=== PATIENT | male | born 1970 | race Caucasian/White ===

== ENCOUNTER 2018-07-16 17:50 | Observation (INO) | payer SELFPAY ==
[2018-07-16] MEDS ORDERED: ASPIRIN 81 MG TABLET, CHEWABLE PO ONE (18:57)
--- NOTE | 2018-07-16 18:58 | ER Document Report ---
ED Medical Screen (RME) - General Chief Complaint: Chest Pain Stated Complaint: CHEST PAIN Time Seen by Provider: 07/16/18 18:56 Mode of Arrival: Ambulatory Information source: Patient, [facility] Records Notes: 48-year-old male with hypertension, obstructive sleep apnea presents with complaint of left-sided chest pain that started 2 hours prior to arrival while watching TV. Patient describes the pain as stabbing, intermittent and associated with nausea and diaphoresis. Patient denies prior similar symptoms. I have greeted and performed a rapid initial assessment of this patient. A comprehensive ED assessment and evaluation of the patient, analysis of test results and completion of medical decision making process we will be contacted by additional ED providers. PHYSICAL EXAMINATION: Vital signs reviewed GENERAL: Well-appearing, well-nourished and in no acute distress. LUNGS: No respiratory distress Musculoskeletal: Normal range of motion NEUROLOGICAL: Normal speech, normal gait. PSYCH: Normal mood, normal affect. SKIN: Warm, Dry, normal turgor, no rashes or lesions noted. TRAVEL OUTSIDE OF THE [place] IN LAST 30 DAYS: No - HPI Onset: Just prior to arrival Onset/Duration: Sudden, Intermittent, Persistent Quality of pain: Stabbing Associated Symptoms: Nausea, Sweating Exacerbated by: Denies Relieved by: Denies Similar symptoms previously: No Recently seen / treated by doctor: No - Related Data Smoking: Cigarettes Frequency of alcohol use: Occasional Drug Abuse: None Allergies/Adverse Reactions: YVONNE Inhibitors Allergy (Verified 07/16/18 17:53) Penicillins Allergy (Verified 07/16/18 17:53) Past Medical History - Social History Chew tobacco use (# tins/day): No Frequency of alcohol use: Social Drug Abuse: None - Past Medical History Cardiac Medical History: Reports: Hx Hypertension Renal/ Medical History: Denies: Hx Peritoneal Dialysis Psychiatric Medical History: Reports: Hx Depression - anxiety Past Surgical History: Reports: Hx Abdominal Surgery, Hx Tonsillectomy Physical Exam - Vital signs Vitals: Temp Pulse Resp BP Pulse Ox 98.1 F 82 16 160/99 H 98 07/16/18 18:21 07/16/18 18:21 07/16/18 18:21 07/16/18 18:21 07/16/18 18:21 Course - Vital Signs Vital signs: Temp Pulse Resp BP Pulse Ox 98.1 F 82 16 160/99 H 98 07/16/18 18:21 07/16/18 18:21 07/16/18 18:21 07/16/18 18:21 07/16/18 18:21
[2018-07-16 19:34] LABS: ABSOLUTE BASOPHILS # (AUTO) 0.1 10^3/uL (0.0-0.2); ABSOLUTE LYMPHOCYTES (AUTO) 1.2 10^3/uL (0.5-4.7); ABSOLUTE MONOCYTES (AUTO) 0.5 10^3/uL (0.1-1.4); ABSOLUTE NEUT (AUTO) 4.7 10^3/uL (1.7-8.2); BASOPHILS % (AUTO) 0.9 % (0-2); EOSINOPHILS % (AUTO) 0.3 % (0-6); HEMATOCRIT 48.8 % (37.9-51.0); HEMOGLOBIN 16.9 g/dL (13.5-17.0); LYMPHOCYTES % (AUTO) 17.9 % (13-45); MEAN CORPUSCULAR HGB CONC 34.7 g/dL (32.0-36.0); MEAN CORPUSCULAR VOLUME 92 fl (80-97); MONOCYTES % (AUTO) 8.4 % (3-13); PLATELET COUNT 259 10^3/uL (150-450); RED CELL DISTRIBUTION WIDTH 15.2 % (11.5-14.0); SEGMENTED NEUTROPHILS % (AUTO) 72.5 % (42-78); TOTAL CELLS COUNTED % (AUTO) 100 %; WHITE BLOOD COUNT 6.5 10^3/uL (4.0-10.5)
--- NOTE | 2018-07-16 19:34 | RADIOLOGY REPORT (SQ) ---
EXAM DESCRIPTION: CHEST SINGLE VIEW COMPLETED DATE/TIME: 07/16/2018 7:14 pm REASON FOR STUDY: pain COMPARISON: None. EXAM PARAMETERS: NUMBER OF VIEWS: One view. TECHNIQUE: Single frontal radiographic view of the chest acquired. RADIATION DOSE: NA LIMITATIONS: None. FINDINGS: LUNGS AND PLEURA: No opacities, masses or pneumothorax. No pleural effusion. MEDIASTINUM AND HILAR STRUCTURES: No masses. Contour normal. HEART AND VASCULAR STRUCTURES: Heart normal in size. Normal vasculature. BONES: No acute findings. HARDWARE: None in the chest. OTHER: No other significant finding. IMPRESSION: NO ACUTE RADIOGRAPHIC FINDING IN THE CHEST. TECHNICAL DOCUMENTATION: JOB ID: [id number] [employer]- All Rights Reserved Reading location - IP/workstation name: [email or web address]
[2018-07-16 19:55] LABS: ALBUMIN 4.7 g/dL (3.5-5.0); ANION GAP 14 (5-19); BLOOD UREA NITROGEN 7 mg/dL (7-20); CALCIUM 9.9 mg/dL (8.4-10.2); CARBON DIOXIDE 26 mmol/L (22-30); CHLORIDE 97 mmol/L (98-107); GLUCOSE 134 mg/dL (75-110); SODIUM 136.9 mmol/L (137-145); TOTAL PROTEIN 8.3 g/dL (6.3-8.2)
[2018-07-16 19:56] LABS: ALANINE AMINOTRANSFERASE 51 U/L (21-72); ALKALINE PHOSPHATASE 117 U/L (38-126); ASPARTATE AMINO TRANSFERASE 51 U/L (17-59); BILIRUBIN,DIRECT 0.5 mg/dL (0.0-0.4); BILIRUBIN,TOTAL 0.8 mg/dL (0.2-1.3); CREATINE KINASE 88 U/L (55-170)
[2018-07-16 20:05] LABS: CREATINE KINASE MB 1.05 ng/mL (<4.55); TROPONIN I < 0.012 ng/mL
--- NOTE | 2018-07-16 22:07 | ER Document Report ---
ED General - General Chief Complaint: Chest Pain Stated Complaint: CHEST PAIN Time Seen by Provider: 07/16/18 18:56 Mode of Arrival: Ambulatory Notes: Patient is a 48-year-old male presents with complaint of an episode of chest pain. He has no history of coronary disease but he does have a history of smoking as well as hypertension. He is on medication for hypertension. His family doctor is in [facility]. Patient says that he was sitting watching TV. He said he felt relaxed and was not stressed at the time. He said he suddenly had onset of heaviness of his chest with intermittent sharp pains. Said he was very diaphoretic during these episodes. Pain lasted for over 2 hours and gradually resolved with time. Currently is pain-free and looks well. Says he does have some stress in his life but at the time of onset of pain he was not feeling stressed and was just relaxing watching TV. He says he was not contemplating anything stressful. He says this never happened before. Patient history of coronary disease other than his uncle who had triple bypass. Patient 's risk factors are smoking and hypertension. His pain was nonradiating. TRAVEL OUTSIDE OF THE [place] IN LAST 30 DAYS: No - Related Data Allergies/Adverse Reactions: YVONNE Inhibitors Allergy (Verified 07/16/18 17:53) Penicillins Allergy (Verified 07/16/18 17:53) Past Medical History - General Information source: Patient, [facility] Records - Social History Smoking Status: Former Smoker Chew tobacco use (# tins/day): No Frequency of alcohol use: Social Drug Abuse: None Family History: CAD Patient has suicidal ideation: No Patient has homicidal ideation: No - Past Medical History Cardiac Medical History: Reports: Hx Hypertension Renal/ Medical History: Denies: Hx Peritoneal Dialysis Psychiatric Medical History: Reports: Hx Depression - anxiety Past Surgical History: Reports: Hx Abdominal Surgery, Hx Tonsillectomy Review of Systems - Review of Systems Notes: My Normal Review Basic REVIEW OF SYSTEMS: CONSTITUTIONAL : Denies fever, chills, or sweats. Denies recent illness. EENT: Denies eye, ear, throat, or mouth pain or symptoms. Denies nasal or sinus congestion. CARDIOVASCULAR: chest pain RESPIRATORY: Denies cough, cold, or chest congestion. Denies shortness of breath, difficulty breathing, or wheezing. GASTROINTESTINAL: Denies abdominal pain. Denies nausea, vomiting, or diarrhea. Denies constipation. MUSCULOSKELETAL: Denies neck or back pain or joint pain or swelling. SKIN: Denies rash or skin lesions. NEUROLOGICAL: Denies altered mental status or loss of consciousness. Denies headache. Denies weakness or paralysis or loss of use of either side. Denies problems with gait or speech. Denies sensory or motor loss. ALL OTHER SYSTEMS REVIEWED AND NEGATIVE. Physical Exam - Vital signs Vitals: Temp Pulse Resp BP Pulse Ox 98.1 F 82 16 160/99 H 98 07/16/18 18:21 07/16/18 18:21 07/16/18 18:21 07/16/18 18:21 07/16/18 18:21 - Notes Notes: General Appearance: Well nourished, alert, cooperative, no acute distress, no obvious discomfort. Well-appearing. Vitals: reviewed, See vital signs table. Head: no swelling or tenderness to the head Eyes: PERRL, EOMI, Conjuctiva clear Mouth: No decreasd moisture Lungs: No wheezing, No rales, No rhonci, No accessory muscle use, good air exchange bilaterally. Heart: Normal rate, Regular rythm, No murmur, no rub Abdomen: Normal BS, soft, No rigidity, No abdominal tenderness, No guarding, no rebound, no abdominal masses, no organomegaly Extremities: strength 5/5 in all extremities, good pulses in all extremities, no swelling or tenderness in the extremities, no edema. Skin: warm, dry, appropriate color, no rash Neuro: speech clear, oriented x 3, normal affect, responds appropriately to questions. Course - Re-evaluation Re-evalutation: 07/16/18 22:39 Patient is currently well-appearing. Patient is a heart score 4. I recommended admission and patient agrees. I have called spoke with Dr. Walker , hospitalist, who requested we just get the repeat troponin and then he will admit the patient. Repeat troponin has been ordered. Dictation of this chart was performed using voice recognition software; therefore, there may be some unintended grammatical errors. - Vital Signs Vital signs: Temp Pulse Resp BP Pulse Ox 98.1 F 82 16 160/99 H 98 07/16/18 18:21 10 18:21 07/16/18 18:21 07/16/18 18:21 07/16/18 18:21 - Laboratory Result Diagrams: 07/16/18 19:20 07/16/18 19:20 Laboratory results interpreted by me: 07/16/18 07/16/18 19:20 19:20 RDW 15.2 H Sodium 136.9 L Chloride 97 L Glucose 134 H Direct Bilirubin 0.5 H Total Protein 8.3 H - EKG Interpretation by Me Additional EKG results interpreted by me: 07/16/18 22:07 EKG is reviewed and interpreted by me. EKG shows sinus rhythm with a rate of [address] segment elevation or depression. No acute ischemic changes. WI interval, QRS duration are within normal range. QTc interval is prolonged. No old EKG available for comparison. Discharge - Discharge Clinical Impression: Chest pain Qualifiers: Chest pain type: unspecified Qualified Code(s): R07.9 - Chest pain, unspecified Condition: Stable Disposition: ADMITTED OBSERVATION Admitting Provider: Hospitalist Unit Admitted: Telemetry
--- NOTE | 2018-07-16 22:47 | EKG REPORT ---
SEVERITY:- ABNORMAL ECG - SINUS RHYTHM PROLONGED QT INTERVAL : Confirmed by: Perfecto Kitchen 16-Jul-2018 22:47:17
[2018-07-17] MEDS ORDERED: NICOTINE 21 MG/24 HR PATCH.TD24 TD ONE (00:05)
[2018-07-17] MEDS ORDERED: NITROGLYCERIN 0.4 MG/TAB 25 TAB/BOTTLE SL PRN (00:36)
[2018-07-17] MEDS ORDERED: ATORVASTATIN CALCIUM 80 MG TABLET PO ONE ×2 (00:45→05:30)
--- NOTE | 2018-07-17 05:28 | PDOC H&P ---
History of Present Illness Admission Date/PCP: 07/17/18 00:42 Patient complains of: Chest pain History of Present Illness: ANAY ELLSWORTH is a 48 year old male with a past medical history of hypertension, obstructive sleep apnea and anxiety. He presents immediately following 2 hours of dull retrosternal chest pain, crescendo, 5 out of 5 intensity, associated with nausea without vomiting. Symptoms resolved spontaneously, unable to identify alleviating or exacerbating factors. In the emergency room he has an unremarkable workup with exception to an EKG with prolonged QT interval of 508. He denies previous episode, knowledge of this history nor new medications. He is currently pain-free and referred to the hospitalist for observation. Past Medical History Cardiac Medical History: Reports: Hypertension Pulmonary Medical History: Reports: Sleep Apnea Psychiatric Medical History: Reports: Depression - anxiety Past Surgical History Past Surgical History: Reports: Tonsillectomy Social History Information Source: Patient, Emergency [facility] Personnel Lives with: Family Smoking Status: Former Smoker Drugs: None - Advance Directive Resuscitation Status: Full Code Family History Family History: CAD Parental Family History Reviewed: Yes Children Family History Reviewed: Yes Sibling(s) Family History Reviewed.: Yes Medication/Allergy Allergies/Adverse Reactions: YVONNE Inhibitors Allergy (Verified 07/16/18 17:53) Penicillins Allergy (Verified 07/16/18 17:53) Review of Systems Constitutional: ABSENT: chills, fever(s), headache(s), weight gain, weight loss Eyes: ABSENT: visual disturbances Ears: ABSENT: hearing changes Cardiovascular: ABSENT: chest pain, dyspnea on exertion, edema, orthropnea, palpitations Respiratory: ABSENT: cough, hemoptysis Gastrointestinal: ABSENT: abdominal pain, constipation, diarrhea, hematemesis, hematochezia, nausea, vomiting Genitourinary: ABSENT: dysuria, hematuria Musculoskeletal: ABSENT: joint swelling Integumentary: ABSENT: rash, wounds Neurological: ABSENT: abnormal gait, abnormal speech, confusion, dizziness, focal weakness, syncope Psychiatric: ABSENT: anxiety, depression, homidical ideation, suicidal ideation Endocrine: ABSENT: cold intolerance, heat intolerance, polydipsia, polyuria Hematologic/Lymphatic: ABSENT: easy bleeding, easy bruising Physical Exam Vital Signs: Temp Pulse Resp BP Pulse Ox 98.1 F 82 18 160/99 H 95 07/16/18 18:21 07/16/18 18:21 07/17/18 00:00 07/16/18 18:21 07/17/18 00:00 General appearance: PRESENT: no acute distress, well-developed, well-nourished Head exam: PRESENT: atraumatic, normocephalic Eye exam: PRESENT: conjunctiva pink, EOMI, PERRLA. ABSENT: scleral icterus Ear exam: PRESENT: normal external ear exam Mouth exam: PRESENT: moist, tongue midline Neck exam: ABSENT: carotid bruit, JVD, lymphadenopathy, thyromegaly Respiratory exam: PRESENT: clear to auscultation mony. ABSENT: rales, rhonchi, wheezes Cardiovascular exam: PRESENT: RRR. ABSENT: diastolic murmur, rubs, systolic murmur Pulses: PRESENT: normal dorsalis pedis pul Vascular exam: PRESENT: normal capillary refill GI/Abdominal exam: PRESENT: normal bowel sounds, soft. ABSENT: distended, guarding, mass, organolmegaly, rebound, tenderness Rectal exam: PRESENT: deferred Extremities exam: PRESENT: full ROM. ABSENT: calf tenderness, clubbing, pedal edema Neurological exam: PRESENT: alert, awake, oriented to person, oriented to place , oriented to time, oriented to situation, CN II-XII grossly intact. ABSENT: motor sensory deficit Psychiatric exam: PRESENT: appropriate affect, normal mood. ABSENT: homicidal ideation, suicidal ideation Skin exam: PRESENT: dry, intact, warm. ABSENT: cyanosis, rash Results Impressions: Chest X-Ray 07/16/18 18:57 IMPRESSION: NO ACUTE RADIOGRAPHIC FINDING IN THE CHEST. Assessment & Plan - Diagnosis (1) Chest pain Qualifiers: Chest pain type: unspecified Qualified Code(s): R07.9 - Chest pain, unspecified Is this a current diagnosis for this admission?: Yes Plan: there are multiple risk factors for coronary artery disease and subsequently will observe and evaluation of acute coronary syndrome versus coronary artery disease with anginal equivalents. Cardiac monitoring blood pressure Q6 hours , TSH, lipid profile, serial cardiac enzymes and cardiac stress test (2) Hypertension Is this a current diagnosis for this admission?: Yes Plan: Atenolol and YVONNE inhibitor (3) Prolonged QT interval Is this a current diagnosis for this admission?: Yes Plan: Unclear history, repeat EKG, avoid QT prolonging gating agents (4) Obstructive sleep apnea Is this a current diagnosis for this admission?: Yes Plan: CPAP (5) Anxiety Is this a current diagnosis for this admission?: Yes Plan: Low-dose benzodiazepine as needed - Time Time Spent: 50 to 70 Minutes - Inpatient Certification Medical Necessity: Need Close Monitoring Due to Risk of Patient Decompensation
[2018-07-17 06:54] LABS: CHOLESTEROL 216.19 mg/dL (0-200); TRIGLYCERIDES 255 mg/dL (<150)
[2018-07-17 07:05] LABS: DIRECT LDL 137 mg/dL (<100)
[2018-07-17] MEDS ORDERED: DOCUSATE SODIUM 100 MG CAPSULE PO SCH (10:00)
[2018-07-17] MEDS ORDERED: AMLODIPINE BESYLATE 5 MG TABLET PO ONE (11:00)
[2018-07-17] MEDS ORDERED: METOPROLOL TARTRATE 50 MG TABLET PO ONE (11:15)
[2018-07-17 13:02] VITALS: BP 149/102
--- NOTE | 2018-07-17 13:52 | PDOC DISCHARGE SUMMARY ---
General - Admit/Disc Date/PCP Admission Date/Primary Care Provider: 07/17/18 00:42 Discharge Date: 07/17/18 - Discharge Diagnosis (1) Hyperlipidemia Is this a current diagnosis for this admission?: Yes Summary: Initiated on pravastatin 40 mg daily (2) Anxiety Is this a current diagnosis for this admission?: Yes (3) Chest pain Is this a current diagnosis for this admission?: Yes Summary: Unable to complete stress test will follow up with Dr. Rodrigues in the office for an outpatient EKG no ischemia and troponins negative x3 (4) Hypertension Is this a current diagnosis for this admission?: Yes Summary: For control of patient medications changed to metoprolol 50 mg twice daily amlodipine 5 mg daily and to continue hydrochlorothiazide 25 mg daily (5) Obstructive sleep apnea Is this a current diagnosis for this admission?: Yes Summary: No workup in hospital (6) Prolonged QT interval Is this a current diagnosis for this admission?: Yes Summary: Minimal T prolongation patient is on Celexa - Additional Information Resuscitation Status: Full Code Discharge Diet: Cardiac Discharge Activity: Activity As Tolerated Prescriptions: Amlodipine Besylate [Norvasc 5 mg Tablet] 5 mg PO DAILY #30 tablet Aspirin [Aspirin EC] 81 mg PO DAILY #1 pkg Metoprolol Tartrate [Lopressor 50 mg Tablet] 50 mg PO Q12 #60 tablet Nitroglycerin [Nitrostat 0.4 mg (1/150 Gr) Tabs 25/Bottle] 1 tab SL Q5MP PRN # 10 tab PRN Reason: Pravastatin Sodium 40 mg PO QPM #30 tablet Home Medications: Amlodipine Besylate [Norvasc 5 mg Tablet] 5 mg PO DAILY #30 tablet 07/17/18 Aspirin [Aspirin EC] 81 mg PO DAILY #1 pkg 07/17/18 Citalopram Hydrobromide [Celexa 20 mg Tablet] 20 mg PO DAILY 07/17/18 Hydrochlorothiazide [Hydrodiuril 25 mg Tablet] 25 mg PO DAILY 07/17/18 Metoprolol Tartrate [Lopressor 50 mg Tablet] 50 mg PO Q12 #60 tablet 07/17/18 Nitroglycerin [Nitrostat 0.4 mg (1/150 Gr) Tabs 25/Bottle] 1 tab SL Q5MP PRN # 10 tab 07/17/18 Pravastatin Sodium 40 mg PO QPM #30 tablet 07/17/18 History of Present Illness History of Present Illness: ANAY ELLSWORTH is a 48 year old male with a past medical history of hypertension, obstructive sleep apnea and anxiety. He presents immediately following 2 hours of dull retrosternal chest pain, crescendo, 5 out of 5 intensity, associated with nausea without vomiting. Symptoms resolved spontaneously, unable to identify alleviating or exacerbating factors. In the emergency room he has an unremarkable workup with exception to an EKG with prolonged QT interval of 508. He denies previous episode, knowledge of this history nor new medications. He is currently pain-free and referred to the hospitalist for observation Hospital Course Hospital Course: Is admitted to telemetry bed serial troponins were obtained and were negative. Patient was hypertensive throughout his hospital stay. His blood pressure was in excess of 180 and 105 and therefore his stress test could not be accomplished. His atenolol was discontinued he was initiated on metoprolol 50 mg twice daily and amlodipine was added. He was to continue his hydrochlorothiazide. His cholesterol was elevated and he was initiated on pravastatin. The time of discharge his blood pressure was less than 160 systolic and his diastolic was in the low 100s. He was instructed on relaxation techniques and to monitor his blood pressure and follow-up with Dr. Rodrigues as instructed for his stress test. Physical Exam Vital Signs: Temp Pulse Resp BP Pulse Ox 98.4 F 65 16 149/102 H 98 07/17/18 12:00 07/17/18 12:00 07/17/18 12:00 07/17/18 12:00 07/17/18 12:00 Intake & Output 07/16/18 07/17/18 07/18/18 06:59 06:59 06:59 Weight 95.9 kg General appearance: PRESENT: no acute distress, well-developed, well-nourished Neck exam: ABSENT: carotid bruit, JVD, lymphadenopathy, thyromegaly Respiratory exam: PRESENT: clear to auscultation mony. ABSENT: rales, rhonchi, wheezes Cardiovascular exam: PRESENT: RRR. ABSENT: diastolic murmur, rubs, systolic murmur GI/Abdominal exam: PRESENT: normal bowel sounds, soft. ABSENT: distended, guarding, mass, organolmegaly, rebound, tenderness Extremities exam: PRESENT: full ROM. ABSENT: calf tenderness, clubbing, pedal edema Results Laboratory Results: 07/17/18 06:12 Triglycerides 255 H Cholesterol 216.19 H LDL Cholesterol Direct 137 H VLDL Cholesterol 51.0 H HDL Cholesterol 62 07/17/18 09:03 Troponin I < 0.012 Impressions: Chest X-Ray 07/16/18 18:57 IMPRESSION: NO ACUTE RADIOGRAPHIC FINDING IN THE CHEST. Qualifiers - * PATIENT BEING DISCHARGED WITH ANY OF THE FOLLOWING DIAGNOSIS: No Plan Time Spent: Less than 30 Minutes
[2018-07-17] MEDS ORDERED: METOPROLOL TARTRATE 50 MG TABLET PO SCH (22:00)
[2018-07-17] MEDS ORDERED: ATORVASTATIN CALCIUM 80 MG TABLET PO SCH (22:00)
[2018-07-18] MEDS ORDERED: CITALOPRAM HYDROBROMIDE 20 MG TABLET PO SCH (10:00)
[2018-07-18] MEDS ORDERED: HYDROCHLOROTHIAZIDE 25 MG TABLET PO SCH (10:00)
== END 2018-07-17 14:15 | disposition home or self-care (01) ==
LOC: ER 17:50 → EH 07-17 00:42 → 5 07-17 04:20
PROVIDERS: ADMIT Internal Medicine; ATTEND Internal Medicine
DX: R07.2 Precordial pain (principal); E78.5 Hyperlipidemia, unspecified; F41.9 Anxiety disorder, unspecified; I10 Essential (primary) hypertension; G47.33 Obstructive sleep apnea (adult) (pediatric); I45.81 Long QT syndrome; R11.0 Nausea; R61 Generalized hyperhidrosis; Z79.82 Long term (current) use of aspirin; Z79.899 Other long term (current) drug therapy; Z82.49 Family history of ischemic heart disease and other diseases of the circulatory system; Z87.891 Personal history of nicotine dependence
CPT/HCPCS: 93005; 99285; 36415 ×2; 82553; 82550; 85025; 80053; 84484 ×2; 80061; 71045; 93010; G0378 ×2

== ENCOUNTER 2018-07-31 17:17 | Observation (INO) | payer SELFPAY ==
[2018-07-31] MEDS ORDERED: NITROGLYCERIN 0.4 MG/TAB 25 TAB/BOTTLE SL ONE (18:01)
[2018-07-31] MEDS ORDERED: ASPIRIN 81 MG TABLET, CHEWABLE PO ONE (18:01)
--- NOTE | 2018-07-31 18:04 | ER Document Report ---
ED Medical Screen (RME) - General Chief Complaint: Chest Pain Stated Complaint: CHEST PAIN Time Seen by Provider: 07/31/18 17:51 Mode of Arrival: Ambulatory Information source: Patient Notes: 48-year-old male presents to the emergency department with complaints of left- sided chest pressure that started at 1530. It has been constant. No radiation. No alleviating or exacerbating factors. Patient denies any shortness of breath, nausea, vomiting, abdominal pain. Patient denies a history of coronary artery disease, hyperlipidemia, diabetes, family history of coronary artery disease. Patient states that he does smoke and does have a history of hypertension. I have greeted and performed a rapid initial assessment of this patient. A comprehensive ED assessment and evaluation of the patient, analysis of test results and completion of the medical decision making process will be conducted by additional ED providers. PHYSICAL EXAMINATION: GENERAL: Well-appearing, well-nourished and in no acute distress. HEAD: Atraumatic, normocephalic. EYES: Pupils equal round extraocular movements intact, conjunctiva are normal. ENT: Nares patent NECK: Normal range of motion LUNGS: No respiratory distress Musculoskeletal: Normal range of motion NEUROLOGICAL: Normal speech, normal gait. PSYCH: Normal mood, normal affect. SKIN: Warm, Dry, normal turgor, no rashes or lesions noted. TRAVEL OUTSIDE OF THE [place] IN LAST 30 DAYS: No - Related Data Allergies/Adverse Reactions: YVONNE Inhibitors Allergy (Verified 07/16/18 17:53) Penicillins Allergy (Verified 07/16/18 17:53) Past Medical History - Social History Chew tobacco use (# tins/day): No Frequency of alcohol use: Heavy Drug Abuse: None - Past Medical History Cardiac Medical History: Reports: Hx Hypertension Pulmonary Medical History: Reports: Hx Sleep Apnea Renal/ Medical History: Denies: Hx Peritoneal Dialysis Psychiatric Medical History: Reports: Hx Depression - anxiety Past Surgical History: Reports: Hx Abdominal Surgery, Hx Tonsillectomy - Immunizations History of Influenza Vaccine for 07/2017 - 12/2017 Season: No Physical Exam - Vital signs Vitals: Temp Pulse Resp BP Pulse Ox 98.6 F 90 20 148/90 H 96 07/31/18 17:35 07/31/18 17:35 07/31/18 17:35 07/31/18 17:35 07/31/18 17:35 Course - Vital Signs Vital signs: Temp Pulse Resp BP Pulse Ox 98.6 F 90 20 148/90 H 96 07/31/18 17:35 07/31/18 17:35 07/31/18 17:35 07/31/18 17:35 07/31/18 17:35
[2018-07-31 18:26] LABS: ABSOLUTE LYMPHOCYTES (AUTO) 0.6 10^3/uL (0.5-4.7); ABSOLUTE MONOCYTES (AUTO) 0.4 10^3/uL (0.1-1.4); ABSOLUTE NEUT (AUTO) 4.3 10^3/uL (1.7-8.2); BASOPHILS % (AUTO) 0.6 % (0-2); EOSINOPHILS % (AUTO) 0.2 % (0-6); HEMATOCRIT 45.7 % (37.9-51.0); HEMOGLOBIN 16.2 g/dL (13.5-17.0); LYMPHOCYTES % (AUTO) 11.7 % (13-45); MEAN CORPUSCULAR HEMOGLOBIN 32.3 pg (27.0-33.4); MEAN CORPUSCULAR HGB CONC 35.4 g/dL (32.0-36.0); MEAN CORPUSCULAR VOLUME 91 fl (80-97); MONOCYTES % (AUTO) 7.7 % (3-13); PLATELET COUNT 143 10^3/uL (150-450); RED BLOOD COUNT 5.01 10^6/uL (4.35-5.55); RED CELL DISTRIBUTION WIDTH 15.1 % (11.5-14.0); SEGMENTED NEUTROPHILS % (AUTO) 79.8 % (42-78); TOTAL CELLS COUNTED % (AUTO) 100 %; WHITE BLOOD COUNT 5.4 10^3/uL (4.0-10.5)
--- NOTE | 2018-07-31 18:29 | ER Document Report ---
ED Cardiac - General Chief Complaint: Chest Pain Stated Complaint: CHEST PAIN Time Seen by Provider: 07/31/18 17:51 Mode of Arrival: Ambulatory Information source: Patient Notes: Patient complained of chest pain which started this afternoon. Patient has not had a stress test in the past. TRAVEL OUTSIDE OF THE [place] IN LAST 30 DAYS: No - HPI Patient complains to provider of: Chest pain Was the onset of pain: Sudden Is the pain a: New problem Chest pain location: Substernal Quality of pain: Constant, Achy, Heaviness Chest pain radiation location: Left shoulder Severity now: Moderate Severity at worst: Moderate Pain level currently: 3 Chest pain precipitating factors: At Rest Cardiac risk factors: Hypertension Positive cardiac history: No Associated symptoms: None Exacerbated by: Denies Relieved by: Nothing Similar symptoms previously: No Recently seen / treated by doctor: No - Related Data Allergies/Adverse Reactions: YVONNE Inhibitors Allergy (Verified 07/16/18 17:53) Penicillins Allergy (Verified 07/16/18 17:53) Past Medical History - General Information source: Patient - Social History Smoking Status: Former Smoker Chew tobacco use (# tins/day): No Frequency of alcohol use: Heavy Drug Abuse: None Family History: CAD Patient has suicidal ideation: No Patient has homicidal ideation: No - Past Medical History Cardiac Medical History: Reports: Hx Hypertension Pulmonary Medical History: Reports: Hx Sleep Apnea Renal/ Medical History: Denies: Hx Peritoneal Dialysis Psychiatric Medical History: Reports: Hx Depression - anxiety Past Surgical History: Reports: Hx Abdominal Surgery, Hx Tonsillectomy Review of Systems - Review of Systems Constitutional: No symptoms reported EENT: No symptoms reported Cardiovascular: Chest pain Respiratory: No symptoms reported Gastrointestinal: No symptoms reported Genitourinary: No symptoms reported Male Genitourinary: No symptoms reported Musculoskeletal: No symptoms reported Skin: No symptoms reported Hematologic/Lymphatic: No symptoms reported Neurological/Psychological: No symptoms reported -: Yes All other systems reviewed and negative Physical Exam - Vital signs Vitals: Temp Pulse Resp BP Pulse Ox 98.6 F 90 20 148/90 H 96 07/31/18 17:35 07/31/18 17:35 07/31/18 17:35 07/31/18 17:35 07/31/18 17:35 Interpretation: Normal - General General appearance: Appears well, Alert - HEENT Head: Normocephalic, Atraumatic Eyes: Normal Pupils: PERRL - Respiratory Respiratory status: No respiratory distress Chest status: Nontender Breath sounds: Normal Chest palpation: Normal - Cardiovascular Rhythm: Regular Heart sounds: Normal auscultation Murmur: No - Abdominal Inspection: Normal Distension: No distension Bowel sounds: Normal Tenderness: Nontender Organomegaly: No organomegaly - Back Back: Normal, Nontender - Extremities General upper extremity: Normal inspection, Nontender, Normal color, Normal ROM , Normal temperature General lower extremity: Normal inspection, Nontender, Normal color, Normal ROM , Normal temperature, Normal weight bearing. No: Oren's sign - Neurological Neuro grossly intact: Yes Cognition: Normal Orientation: AAOx4 Brewster Coma Scale Eye Opening: Spontaneous Brewster Coma Scale Verbal: Oriented Kam Coma Scale Motor: Obeys Commands Brewster Coma Scale Total: 15 Speech: Normal Motor strength normal: LUE, RUE, LLE, RLE Sensory: Normal - Psychological Associated symptoms: Normal affect, Normal mood - Skin Skin Temperature: Warm Skin Moisture: Dry Skin Color: Normal Course - Vital Signs Vital signs: Temp Pulse Resp BP Pulse Ox 98.6 F 90 6 L 137/99 H 98 07/31/18 17:35 07/31/18 17:35 07/31/18 19:01 07/31/18 19:01 07/31/18 19:01 - Laboratory Result Diagrams: 07/31/18 18:02 07/31/18 18:02 Laboratory results interpreted by me: 07/31/18 07/31/18 18:02 18:02 RDW 15.1 H Plt Count 143 L Seg Neutrophils % 79.8 H Lymphocytes % 11.7 L Sodium 134.9 L Potassium 3.4 L Chloride 95 L BUN 5 L Glucose 113 H AST 238 H ALT 267 H Creatine Kinase 250 H - Diagnostic Test Radiology reviewed: Image reviewed, Reports reviewed - EKG Interpretation by Me EKG shows normal: Sinus rhythm Rate: Normal - 90 Rhythm: NSR When compared to previous EKG there are: Previous EKG unavailable Additional EKG results interpreted by me: 07/31/18 18:28 Prolonged QT, No STEMI. - Transfer of Care Care transferred to following provider: Evaluated by Dr. Angela Skelton. Notes: 07/31/18 20:05 Chest pain. Hypertension. Discharge - Discharge Clinical Impression: Chest pain Qualifiers: Chest pain type: unspecified Qualified Code(s): R07.9 - Chest pain, unspecified Hypertension Qualifiers: Hypertension type: unspecified Qualified Code(s): I10 - Essential (primary) hypertension Condition: Stable Disposition: ADMITTED OBSERVATION Admitting Provider: Hospitalist Unit Admitted: Telemetry
--- NOTE | 2018-07-31 18:31 | RADIOLOGY REPORT (SQ) ---
EXAM DESCRIPTION: CHEST SINGLE VIEW COMPLETED DATE/TIME: 07/31/2018 6:18 pm REASON FOR STUDY: chest pain COMPARISON: 07/16/2018 EXAM PARAMETERS: NUMBER OF VIEWS: One view. TECHNIQUE: Single frontal radiographic view of the chest acquired. RADIATION DOSE: NA LIMITATIONS: None. FINDINGS: LUNGS AND PLEURA: No opacities, masses or pneumothorax. No pleural effusion. MEDIASTINUM AND HILAR STRUCTURES: No masses. Contour normal. HEART AND VASCULAR STRUCTURES: Heart normal in size. Normal vasculature. BONES: No acute findings. HARDWARE: None in the chest. OTHER: No other significant finding. IMPRESSION: NO ACUTE RADIOGRAPHIC FINDING IN THE CHEST. TECHNICAL DOCUMENTATION: JOB ID: [id number] [employer]- All Rights Reserved Reading location - IP/workstation name: [email or web address]
[2018-07-31] MEDS ORDERED: METOCLOPRAMIDE HCL INJ/PF 10 MG/2 ML SDV IV ONE (18:35)
[2018-07-31] MEDS ORDERED: METOPROLOL TARTRATE PF/INJ 5 MG/5 ML SDV IV ONE (18:35)
[2018-07-31] MEDS ORDERED: NORMAL SALINE 1000 ML 1,000 ML IV ONE (18:36)
[2018-07-31 18:42] LABS: ALANINE AMINOTRANSFERASE 267 U/L (21-72); ALBUMIN 4.6 g/dL (3.5-5.0); ALKALINE PHOSPHATASE 103 U/L (38-126); ANION GAP 18 (5-19); ASPARTATE AMINO TRANSFERASE 238 U/L (17-59); BILIRUBIN,DIRECT 0.3 mg/dL (0.0-0.4); BILIRUBIN,TOTAL 0.8 mg/dL (0.2-1.3); BLOOD UREA NITROGEN 5 mg/dL (7-20); CALCIUM 9.3 mg/dL (8.4-10.2); CARBON DIOXIDE 22 mmol/L (22-30); CHLORIDE 95 mmol/L (98-107); CREATINE KINASE 250 U/L (55-170); GLUCOSE 113 mg/dL (75-110); POTASSIUM 3.4 mmol/L (3.6-5.0); SODIUM 134.9 mmol/L (137-145); TOTAL PROTEIN 7.6 g/dL (6.3-8.2)
[2018-07-31 18:53] LABS: CREATINE KINASE MB 2.61 ng/mL (<4.55)
[2018-07-31 18:55] LABS: TROPONIN I < 0.012 ng/mL
[2018-07-31] MEDS ORDERED: LORAZEPAM INJ 2 MG/1 ML VIAL IV ONE (22:15)
[2018-07-31] MEDS ORDERED: ACETAMINOPHEN 325 MG TABLET PO PRN (22:51)
[2018-07-31] MEDS ORDERED: MAG HYDROX/AL HYDROX/SIMETH SUSP 30 ML UDCUP PO PRN (22:51)
[2018-07-31] MEDS ORDERED: PROMETHAZINE HCL INJ 25 MG/1 ML VIAL IV PRN (22:51)
[2018-07-31] MEDS ORDERED: PROMETHAZINE HCL 25 MG TABLET PO PRN (22:51)
[2018-07-31] MEDS ORDERED: TEMAZEPAM 7.5 MG CAPSULE PO PRN (22:51)
[2018-07-31] MEDS ORDERED: CLONAZEPAM 1 MG TABLET PO ONE (22:57)
[2018-07-31] MEDS ORDERED: CLONAZEPAM 1 MG TABLET PO PRN (22:58)
[2018-07-31] MEDS ORDERED: METOPROLOL TARTRATE PF/INJ 5 MG/5 ML SDV IV PRN (22:59)
[2018-07-31] MEDS ORDERED: POTASSIUM CHLORIDE 20 MEQ/15 ML UDCUP PO ONE (23:01)
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
[2018-08-01] MEDS: LORAZEPAM INJ 2 MG/1 ML VIAL IV PRN (07:13)
--- NOTE | 2018-08-01 07:55 | EKG REPORT ---
SEVERITY:- BORDERLINE ECG - SINUS RHYTHM BORDERLINE T ABNORMALITIES, INFERIOR LEADS : Confirmed by: Ronen Vidal MD 01-Aug-2018 07:54:37
--- NOTE | 2018-08-01 09:54 | RADIOLOGY REPORT (SQ) ---
EXAM DESCRIPTION: U/S ABDOMEN LIMITED W/O DOP COMPLETED DATE/TIME: 08/01/2018 8:49 am REASON FOR STUDY: Transaminitis COMPARISON: None. TECHNIQUE: Dynamic and static grayscale images acquired of the abdomen and recorded on PACS. Additio nal selected color Doppler and spectral images recorded. LIMITATIONS: None. FINDINGS: PANCREAS: No masses. Visualized pancreatic duct normal caliber. LIVER: 19.0 cm. Moderate to marked fatty infiltration. No focal masses. LIVER VASCULATURE: Normal directional flow of the main portal vein and hepatic veins. GALLBLADDER: No stones. Normal wall thickness. No pericholecystic fluid. ULTRASOUND-DETECTED SOMMERS'S SIGN: Negative. INTRAHEPATIC DUCTS AND COMMON DUCT: CBD and intrahepatic ducts normal caliber. No filling defects. INFERIOR VENA CAVA: Normal flow. AORTA: No aneurysm. RIGHT KIDNEY: Normal size. Normal echogenicity. No solid or suspicious masses. No hydronephros is. No calcifications. PERITONEAL AND RIGHT PLEURAL SPACE: No ascites or effusions. OTHER: No other significant findings. IMPRESSION: Fatty liver. Mild hepatomegaly. No ascites. TECHNICAL DOCUMENTATION: JOB ID: [id number]- All Rights Reserved Reading location - IP/workstation name: [email or web address]
[2018-08-01] MEDS ORDERED: ATENOLOL 50 MG TABLET PO SCH (10:00)
[2018-08-01] MEDS: ENOXAPARIN SODIUM INJ 40 MG/0.4 ML DISP.SYRIN SUBCUT SCH (11:32)
[2018-08-01] MEDS: DIVALPROEX SODIUM 250 MG TABLET.DR PO SCH (11:33)
[2018-08-01] MEDS: MULTIVITAMIN TABLET PO SCH (11:33)
[2018-08-01] MEDS: AMLODIPINE BESYLATE 5 MG TABLET PO SCH (11:33)
[2018-08-01] MEDS: HYDROCHLOROTHIAZIDE 25 MG TABLET PO SCH (11:33)
[2018-08-01] MEDS: THIAMINE HCL 100 MG TABLET PO SCH (11:35)
[2018-08-01] MEDS: FOLIC ACID 1 MG TABLET PO SCH (11:35)
--- NOTE | 2018-08-01 15:32 | PDOC PROGRESS REPORT ---
Subjective Progress Note for:: 08/01/18 Subjective:: ANAY ELLSWORTH is a 48 year old male with history of anxiety with panic attacks and hypertension who was sent to to ED complaining of chest pain. Chest pain started at 3 PM while sitting, pressure-like, up to 8/10, nonradiating , associated with diaphoresis, shortness of breath, shaking. He was discharged from our facility on 07/17/2018. He states that stress test was attempted on his last admission but but was canceled due to elevated blood pressure caused by his anxiety. He was supposed to make an appointment with Dr. Rodrigues , unfortunately could not do it due to lack of health insurance. On this admission EKG and troponins have been negative was found to have elevated blood pressure. Has history of EtOH abuse and last drink was 2 days ago.. 08/01/2018. No acute events overnight. On my encounter patient is comfortably laying in his bed does not seem to be in any acute distress. He is stating that he is pain-free but he is concerned for his stress test that should be done while he is hospitalized because he cannot afford to do it as outpatient. He denies any fever, chills, nausea, vomiting, shortness of breath, chest pain, diarrhea or any urinary symptoms. Reason For Visit: CHEST PAIN Physical Exam Vital Signs: Temp Pulse Resp BP Pulse Ox 98.7 F 109 H 16 150/99 H 99 08/01/18 14:00 08/01/18 14:00 08/01/18 14:00 08/01/18 14:00 08/01/18 14:00 Intake & Output 07/31/18 08/01/18 08/02/18 06:59 06:59 06:59 Intake Total 1000 Balance 1000 Weight 106.8 kg General appearance: PRESENT: no acute distress, well-developed, well-nourished Head exam: PRESENT: atraumatic, normocephalic Eye exam: PRESENT: conjunctiva pink, EOMI, PERRLA. ABSENT: scleral icterus Ear exam: PRESENT: normal external ear exam Mouth exam: PRESENT: moist, tongue midline Neck exam: ABSENT: carotid bruit, JVD, lymphadenopathy, thyromegaly Respiratory exam: PRESENT: clear to auscultation mony. ABSENT: rales, rhonchi, wheezes Cardiovascular exam: PRESENT: RRR. ABSENT: diastolic murmur, rubs, systolic murmur Pulses: PRESENT: normal dorsalis pedis pul Vascular exam: PRESENT: normal capillary refill GI/Abdominal exam: PRESENT: normal bowel sounds, soft. ABSENT: distended, guarding, mass, organolmegaly, rebound, tenderness Rectal exam: PRESENT: deferred Extremities exam: PRESENT: full ROM. ABSENT: calf tenderness, clubbing, pedal edema Neurological exam: PRESENT: alert, awake, oriented to person, oriented to place , oriented to time, oriented to situation, CN II-XII grossly intact. ABSENT: motor sensory deficit Psychiatric exam: PRESENT: appropriate affect, normal mood. ABSENT: homicidal ideation, suicidal ideation Skin exam: PRESENT: dry, intact, warm. ABSENT: cyanosis, rash Results Laboratory Results: 08/01/18 04:45 GGT 173 H 07/31/18 07/31/18 08/01/18 22:03 22:03 04:45 CK-MB (CK-2) 2.12 1.26 Troponin I < 0.012 08/01/18 11:13 CK-MB (CK-2) 1.07 Troponin I Impressions: Chest X-Ray 07/31/18 18:01 IMPRESSION: NO ACUTE RADIOGRAPHIC FINDING IN THE CHEST. Abdomen Ultrasound 08/01/18 00:00 IMPRESSION: Fatty liver. Mild hepatomegaly. No ascites. Assessment & Plan - Diagnosis (1) Chest pain Qualifiers: Chest pain type: unspecified Qualified Code(s): R07.9 - Chest pain, unspecified Is this a current diagnosis for this admission?: Yes Plan: HEART Score 4 atypical chest pain and risk factors. EKG and troponin has been negative. Consulted cardiology for possible stress study for further risk stratification. Continue aspirin, statin, beta blockers. (2) Alcohol dependence Qualifiers: Substance use status: in withdrawal Is this a current diagnosis for this admission?: Yes Plan: Monitor for withdrawals. Started on DT protocol. (3) Anxiety Is this a current diagnosis for this admission?: Yes Plan: History of anxiety and panic attacks. Continue benzos as needed. Psychiatry consulted for further recommendation. (4) Obstructive sleep apnea Is this a current diagnosis for this admission?: Yes Plan: Nocturnal CPAP. Outpatient follow-up for nocturnal polysomnography. (5) Transaminitis Is this a current diagnosis for this admission?: Yes Plan: Likely due to EtOH abuse. Ultrasound from 08/01/2018 shows fatty liver, mild hepatomegaly. No ascites. Will obtain hepatitis panel. (6) Hyperlipidemia Is this a current diagnosis for this admission?: Yes Plan: ASCVD score of 9.1%. Will start on high intensity statins. Advised on lifestyle and diet modification. (7) Hypertension Qualifiers: Hypertension type: unspecified Qualified Code(s): I10 - Essential (primary ) hypertension Is this a current diagnosis for this admission?: Yes Plan: Not controlled. Restart hydrochlorothiazide and amlodipine. Switch atenolol to carvedilol for better blood pressure control. Adjust medications as needed. Outpatient PCP follow-up.
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
[2018-08-01] MEDS: CARVEDILOL 12.5 MG TABLET PO SCH ×2 (17:03→21:52)
[2018-08-01] MEDS ORDERED: NORMAL SALINE 1000 ML 1,000 ML with POTASSIUM CHLORIDE 20 MEQ, MAGNESIUM SULFATE 8 MEQ,... IV SCH ×5 (18:00)
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
[2018-08-01] MEDS: BUSPIRONE HCL 10 MG TABLET PO SCH (21:51)
[2018-08-01] MEDS: VENLAFAXINE HCL 37.5 MG CAP.SR.24H PO SCH (21:51)
[2018-08-02 06:28] LABS: ABSOLUTE EOSINOPHILS # (AUTO) 0.2 10^3/uL (0.0-0.6); ABSOLUTE LYMPHOCYTES (AUTO) 1.1 10^3/uL (0.5-4.7); ABSOLUTE MONOCYTES (AUTO) 0.4 10^3/uL (0.1-1.4); ABSOLUTE NEUT (AUTO) 1.9 10^3/uL (1.7-8.2); BASOPHILS % (AUTO) 0.8 % (0-2); EOSINOPHILS % (AUTO) 4.4 % (0-6); HEMATOCRIT 42.3 % (37.9-51.0); HEMOGLOBIN 14.6 g/dL (13.5-17.0); LYMPHOCYTES % (AUTO) 31.1 % (13-45); MEAN CORPUSCULAR HEMOGLOBIN 32.2 pg (27.0-33.4); MEAN CORPUSCULAR HGB CONC 34.5 g/dL (32.0-36.0); MEAN CORPUSCULAR VOLUME 93 fl (80-97); MONOCYTES % (AUTO) 10.3 % (3-13); PLATELET COUNT 103 10^3/uL (150-450); RED BLOOD COUNT 4.53 10^6/uL (4.35-5.55); RED CELL DISTRIBUTION WIDTH 14.9 % (11.5-14.0); SEGMENTED NEUTROPHILS % (AUTO) 53.4 % (42-78); TOTAL CELLS COUNTED % (AUTO) 100 %; WHITE BLOOD COUNT 3.5 10^3/uL (4.0-10.5)
--- NOTE | 2018-08-02 07:25 | EKG REPORT ---
SEVERITY:- BORDERLINE ECG - SINUS RHYTHM NONSPECIFIC ST-T CHANGES- INFERIOR LEADS, MILD. : Confirmed by: Ronen Vidal MD 02-Aug-2018 07:24:26
[2018-08-02 07:26] LABS: ALANINE AMINOTRANSFERASE 139 U/L (21-72); ALBUMIN 3.8 g/dL (3.5-5.0); ALKALINE PHOSPHATASE 126 U/L (38-126); ANION GAP 10 (5-19); ASPARTATE AMINO TRANSFERASE 77 U/L (17-59); BILIRUBIN,DIRECT 0.3 mg/dL (0.0-0.4); BILIRUBIN,TOTAL 0.7 mg/dL (0.2-1.3); BLOOD UREA NITROGEN 14 mg/dL (7-20); CALCIUM 9.2 mg/dL (8.4-10.2); CARBON DIOXIDE 24 mmol/L (22-30); CHLORIDE 103 mmol/L (98-107); GLUCOSE 134 mg/dL (75-110); POTASSIUM 3.5 mmol/L (3.6-5.0); SODIUM 137.4 mmol/L (137-145); TOTAL PROTEIN 6.5 g/dL (6.3-8.2); TRIGLYCERIDES 102 mg/dL (<150)
--- NOTE | 2018-08-02 07:26 | EKG REPORT ---
SEVERITY:- ABNORMAL ECG - SINUS RHYTHM PROLONGED QT INTERVAL : Confirmed by: Ronen Vidal MD 02-Aug-2018 07:26:17
[2018-08-02 07:37] LABS: DIRECT LDL 84 mg/dL (<100)
[2018-08-02] MEDS ORDERED: LOPERAMIDE HCL 2 MG CAPSULE PO PRN (09:12)
[2018-08-02] MEDS ORDERED: PROMETHAZINE HCL INJ 25 MG/1 ML VIAL IV PRN (09:30)
[2018-08-02] MEDS: AMLODIPINE BESYLATE 5 MG TABLET PO SCH (10:02)
[2018-08-02] MEDS: PANTOPRAZOLE SODIUM 40 MG VIAL IV SCH (10:02)
[2018-08-02] MEDS: CARVEDILOL 12.5 MG TABLET PO SCH ×2 (10:02→21:46)
[2018-08-02] MEDS: VENLAFAXINE HCL 37.5 MG CAP.SR.24H PO SCH ×2 (10:03→21:45)
[2018-08-02] MEDS: BUSPIRONE HCL 10 MG TABLET PO SCH ×2 (10:03→21:45)
[2018-08-02] MEDS: MULTIVITAMIN TABLET PO SCH (10:03)
[2018-08-02] MEDS: HYDROCHLOROTHIAZIDE 25 MG TABLET PO SCH (10:03)
[2018-08-02] MEDS: THIAMINE HCL 100 MG TABLET PO SCH (10:03)
[2018-08-02] MEDS: FOLIC ACID 1 MG TABLET PO SCH (10:03)
[2018-08-02] MEDS: ENOXAPARIN SODIUM INJ 40 MG/0.4 ML DISP.SYRIN SUBCUT SCH (10:08)
--- NOTE | 2018-08-02 10:51 | Physician Advisory Note ---
Physician Advisor ProgressNote .: Pursuant to the plan for [facility], I have reviewed the medical record for this patient. Physician Advisor Statement: Please consider documenting, if you agree: 1. "Acute CP, suspect most likely due to " 2. "Transaminitis, likely due to acute alcoholic hepatitis", or "Transaminitis, likely due to fatty liver due to alcohol abuse/dependence", or ... ("Transaminitis", in the coding world, is just an abnormal lab finding, not a dx. Please give underlying dx.s for sx & abnl labs whenever possible, to capture the full severity of what you're managing.) Thanks for your help - & your patience with documentation review input! CK
[2018-08-02] MEDS ORDERED: POTASSIUM CHLORIDE 10 MEQ CAPSULE.ER PO ONE (11:00)
[2018-08-02] MEDS: DIVALPROEX SODIUM 250 MG TABLET.DR PO SCH (11:43)
--- NOTE | 2018-08-02 12:10 | PDOC PROGRESS REPORT ---
Subjective Progress Note for:: 08/02/18 Subjective:: ANAY ELLSWORTH is a 48 year old male with history of anxiety with panic attacks and hypertension who was sent to to ED complaining of chest pain. Chest pain started at 3 PM while sitting, pressure-like, up to 8/10, nonradiating , associated with diaphoresis, shortness of breath, shaking. He was discharged from our facility on 07/17/2018. He states that stress test was attempted on his last admission but but was canceled due to elevated blood pressure caused by his anxiety. He was supposed to make an appointment with Dr. Rodrigues , unfortunately could not do it due to lack of health insurance. On this admission EKG and troponins have been negative was found to have elevated blood pressure. Has history of EtOH abuse and last drink was 2 days ago.. 08/01/2018. No acute events overnight. On my encounter patient is comfortably laying in his bed does not seem to be in any acute distress. He is stating that he is pain-free but he is concerned for his stress test that should be done while he is hospitalized because he cannot afford to do it as outpatient. He denies any fever, chills, nausea, vomiting, shortness of breath, chest pain, diarrhea or any urinary symptoms. 08/02/2018. No acute events overnight. Chest pain has resolved. Patient is pleasant and cooperative with physical examination. Patient wants to have his cardiac a stress test as inpatient due to insurance problems. Denies any chest pain, shortness of breath, nausea, vomiting, diarrhea, constipation or any urinary symptoms. Reason For Visit: CHEST PAIN Physical Exam Vital Signs: Temp Pulse Resp BP Pulse Ox 98.2 F 72 18 137/89 H 96 08/02/18 07:41 08/02/18 07:41 08/02/18 07:41 08/02/18 07:41 08/02/18 08:33 Intake & Output 08/01/18 08/02/18 08/03/18 06:59 06:59 06:59 Intake Total 1000 1405 Balance 1000 1405 Weight 106.8 kg 99.6 kg General appearance: PRESENT: no acute distress, well-developed, well-nourished Head exam: PRESENT: atraumatic, normocephalic Eye exam: PRESENT: conjunctiva pink, EOMI, PERRLA. ABSENT: scleral icterus Ear exam: PRESENT: normal external ear exam Mouth exam: PRESENT: moist, tongue midline Neck exam: ABSENT: carotid bruit, JVD, lymphadenopathy, thyromegaly Respiratory exam: PRESENT: clear to auscultation mony. ABSENT: rales, rhonchi, wheezes Cardiovascular exam: PRESENT: RRR. ABSENT: diastolic murmur, rubs, systolic murmur Pulses: PRESENT: normal dorsalis pedis pul Vascular exam: PRESENT: normal capillary refill GI/Abdominal exam: PRESENT: normal bowel sounds, soft. ABSENT: distended, guarding, mass, organolmegaly, rebound, tenderness Rectal exam: PRESENT: deferred Extremities exam: PRESENT: full ROM. ABSENT: calf tenderness, clubbing, pedal edema Neurological exam: PRESENT: alert, awake, oriented to person, oriented to place , oriented to time, oriented to situation, CN II-XII grossly intact. ABSENT: motor sensory deficit Psychiatric exam: PRESENT: appropriate affect, normal mood. ABSENT: homicidal ideation, suicidal ideation Skin exam: PRESENT: dry, intact, warm. ABSENT: cyanosis, rash Results Laboratory Results: 08/02/18 05:01 08/02/18 06:56 08/02/18 08/02/18 08/02/18 05:01 05:01 06:56 WBC 3.5 L RBC 4.53 Hgb 14.6 Hct 42.3 MCV 93 MCH 32.2 MCHC 34.5 RDW 14.9 H Plt Count 103 L Seg Neutrophils % 53.4 Lymphocytes % 31.1 Monocytes % 10.3 Eosinophils % 4.4 Basophils % 0.8 Absolute Neutrophils 1.9 Absolute Lymphocytes 1.1 Absolute Monocytes 0.4 Absolute Eosinophils 0.2 Absolute Basophils 0.0 Sodium Cancelled 137.4 Potassium Cancelled 3.5 L Chloride Cancelled 103 Carbon Dioxide Cancelled 24 Anion Gap Cancelled 10 BUN Cancelled 14 Creatinine Cancelled 0.67 Est GFR ( Amer) Cancelled > 60 Est GFR (Non-Af Amer) Cancelled > 60 Glucose Cancelled 134 H Calcium Cancelled 9.2 Total Bilirubin Cancelled 0.7 AST Cancelled 77 H ALT Cancelled 139 H Alkaline Phosphatase Cancelled 126 Total Protein Cancelled 6.5 Albumin Cancelled 3.8 Triglycerides Cancelled 102 Cholesterol Cancelled 167.30 LDL Cholesterol Direct Cancelled 84 VLDL Cholesterol Cancelled 20.0 HDL Cholesterol Cancelled 63 07/31/18 07/31/18 08/01/18 22:03 22:03 04:45 CK-MB (CK-2) 2.12 1.26 Troponin I < 0.012 08/01/18 08/02/18 08/02/18 11:13 05:01 06:56 CK-MB (CK-2) 1.07 Troponin I Cancelled < 0.012 Impressions: Chest X-Ray 07/31/18 18:01 IMPRESSION: NO ACUTE RADIOGRAPHIC FINDING IN THE CHEST. Abdomen Ultrasound 08/01/18 00:00 IMPRESSION: Fatty liver. Mild hepatomegaly. No ascites. Assessment & Plan - Diagnosis (1) Chest pain Qualifiers: Chest pain type: unspecified Qualified Code(s): R07.9 - Chest pain, unspecified Is this a current diagnosis for this admission?: Yes Plan: Resolved. Atypical chest pain by history unlikely cardiac however HEART Score 4 to his risk factors. EKG and troponin has been negative. Pending Lexiscan Cardiolite stress test. Continue aspirin, statin, beta blockers. (2) Alcohol dependence Qualifiers: Substance use status: in withdrawal Is this a current diagnosis for this admission?: Yes Plan: No signs of withdrawal. Monitor for withdrawals. Started on DT protocol. (3) Anxiety Is this a current diagnosis for this admission?: Yes Plan: Improved. Start on BuSpar and Effexor as per psych recommendation. Benzos as needed. (4) Obstructive sleep apnea Is this a current diagnosis for this admission?: Yes Plan: Nocturnal CPAP. Outpatient follow-up for nocturnal polysomnography. (5) Transaminitis Is this a current diagnosis for this admission?: Yes Plan: Likely due to alcoholic hepatitis or underlying fatty liver disease due to alcohol dependence. Ultrasound from 08/01/2018 shows fatty liver, mild hepatomegaly. No ascites. Pending hepatitis panel. (6) Hyperlipidemia Is this a current diagnosis for this admission?: Yes Plan: ASCVD score of 9.1%. Will start on high intensity statins. Advised on lifestyle and diet modification. (7) Hypertension Qualifiers: Hypertension type: unspecified Qualified Code(s): I10 - Essential (primary ) hypertension Is this a current diagnosis for this admission?: Yes Plan: Better controlled. Continue hydrochlorothiazide, amlodipine, carvedilol. Adjust medications as needed. Outpatient PCP follow-up.
[2018-08-02] MEDS ORDERED: HYDRALAZINE HCL INJ/PF 20 MG/1 ML SDV IV ONE (21:00)
--- NOTE | 2018-08-02 21:19 | Progress Note ---
Provider Note Provider Note: Cardiology call progress NOTE on 08/02/2018, by Dr. Ellyn Rodrigues. SUBJECTIVE: The patient denies any chest pain or discomfort. There is no PND or orthopnea. There is no shortness of breath. There is no leg edema. There is no palpitations, near syncope or syncope. The patient appears to be less anxious today and in fact appears to be cheerful. There is no arrhythmias seen on the monitor. PHYSICAL EXAMINATION: The patient is well-built and well-nourished. At present with no chest pain. He is not at present and any distress. He is well- groomed. Selected Entries 08/02/18 12:14 Temperature 98.0 F Temperature Oral Source Pulse Rate 90 Respiratory 20 Rate Blood Pressure 140/87 H Blood Pressure 104 Mean BP Location Left Arm BP Position Supine O2 Sat by Pulse 97 Oximetry Oxygen Delivery Room Air Method HEAD: Head is atraumatic normocephalic. EYES: Pupils are equal round regular reactive light accommodation. Extraocular movements are normal. There is no palatal pallor. There is no scleral icterus. EARS: Tympanic membranes are intact. External auditory canals are clear. NOSE: There is no deviated nasal septum. There is no inflammation or nasal mucous membrane. MOUTH: Mucous membranes of mouth are moist tongue is moist there is no ulcers there is no bleeding from the gums. THROAT: There is no exudates in the throat. There is no redness of the oropharynx. SKIN: There is no skin rashes or skin lesions. There is no petechia or ecchymosis. NECK: Is supple there is no JVD. Carotids are equal there is no bruits. There is no lymphadenopathy. There is no goiter. There is no accessory muscle respiration use. Trachea central. There is no goiter. There is no lymphadenopathy. LUNGS: Clear to auscultation percussion, without any rhonchi rales or wheezing. There is no chest wall tenderness. HEART: S1-S2 is heard there is no S3 gallop there is no S4 gallop. There is systolic murmur left sternal border and apex. There is no rub. ABDOMEN: Is soft. There is no hepatosplenomegaly. Bowel sounds well heard. There is no rebound guarding or rigidity. EXTREMITIES: Femorals are well felt. There is no femoral bruits. Leg pulses are well felt.. There is no pedal edema. There is no DVT or cellulitis. There is no calf tenderness. There is no sinus or clubbing. Capillary refill is normal. 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 PSYCHIATRIC: The patient judgment insight intact although the patient appears to be slightly anxious. 08/02/18 08/02/18 08/02/18 05:01 06:56 06:56 WBC 3.5 L Hgb 14.6 Hct 42.3 Plt Count 103 L Sodium 137.4 Potassium 3.5 L Chloride 103 Carbon Dioxide 24 BUN 14 Creatinine 0.67 Est GFR (Non-Af Amer) > 60 Glucose 134 H Calcium 9.2 Total Bilirubin 0.7 Direct Bilirubin 0.3 Neonat Total Bilirubin Not Reportable Neonat Direct Bilirubin Not Reportable Neonat Indirect Bili Not Reportable AST 77 H ALT 139 H Alkaline Phosphatase 126 Troponin I < 0.012 Total Protein 6.5 Albumin 3.8 Triglycerides 102 Cholesterol 167.30 LDL Cholesterol Direct 84 VLDL Cholesterol 20.0 HDL Cholesterol 63 EKG: Sinus rhythm. Borderline T changes in the inferior leads. IMPRESSION/RECOMMENDATION: 1. Chest pain: Appears to be atypical. Patient's coronary artery risk factors are patient's age, hypertension, and possible family history of coronary artery disease. So far the EKG is without any major changes, and troponin I is negative. Hence would recommend that the patient have IV Lexiscan Cardiolite stress test scheduled for tomorrow. 2. HYPERTENSION: At present blood pressure seems to be under fair control. Continue current medications. 3. Alcohol use: This may be the cause of the patient's hepatitis. 4. Abnormal liver function tests: Most likely secondary to alcoholic hepatitis. 5. Depression: Patient being seen by psychiatry. 6. Severe anxiety with panic attacks: Patient being seen by psychiatriy. 7. Mild hypokalemia: Replenish patient's potassium. Note medications have been reviewed management plan has been discussed with attending physician and with the patient. We will hopefully schedule the patient for IV Lexiscan Cardiolite stress test on Monday, that is tomorrow. Patient counseled to refrain from and abstain from alcohol. Ill effects of alcohol explained to patient. Medical decision making is of moderate complexity. Will follow with you.
[2018-08-03] MEDS: LORAZEPAM INJ 2 MG/1 ML VIAL IV PRN ×2 (00:47→15:23)
[2018-08-03] MEDS ORDERED: HYDRALAZINE HCL INJ/PF 20 MG/1 ML SDV IV PRN (03:00)
[2018-08-03] MEDS: THIAMINE HCL 100 MG TABLET PO SCH (09:05)
[2018-08-03] MEDS: AMLODIPINE BESYLATE 5 MG TABLET PO SCH (09:05)
[2018-08-03] MEDS: BUSPIRONE HCL 10 MG TABLET PO SCH (09:05)
[2018-08-03] MEDS: FOLIC ACID 1 MG TABLET PO SCH (09:05)
[2018-08-03] MEDS: ENOXAPARIN SODIUM INJ 40 MG/0.4 ML DISP.SYRIN SUBCUT SCH (09:06)
[2018-08-03] MEDS: MULTIVITAMIN TABLET PO SCH (09:06)
[2018-08-03] MEDS: HYDROCHLOROTHIAZIDE 25 MG TABLET PO SCH (09:06)
[2018-08-03] MEDS: PANTOPRAZOLE SODIUM 40 MG VIAL IV SCH (09:06)
[2018-08-03] MEDS: VENLAFAXINE HCL 37.5 MG CAP.SR.24H PO SCH (09:06)
[2018-08-03] MEDS ORDERED: REGADENOSON INJ 0.4 MG/5 ML DISP.SYRIN IV ONE (10:00)
[2018-08-03] MEDS: CARVEDILOL 12.5 MG TABLET PO SCH (11:42)
[2018-08-03] MEDS: DIVALPROEX SODIUM 250 MG TABLET.DR PO SCH (11:42)
[2018-08-03] MEDS ORDERED: AMLODIPINE BESYLATE 5 MG TABLET PO ONE ×2 (12:18→14:45)
--- NOTE | 2018-08-03 13:02 | DRAGON STRESS TEST REPORT ---
Intravenous Lexiscan Cardiolite stress test using single photon emmision computerized tomography. Date of procedure: 08/03/2018. Ordering Provider: Dr. Ochoa. Patient's status : In Patient. Indication: Chest pain. Coronary risk factors: Age, hypertension, and family history of coronary artery disease. Resting EKG: Sinus Rhythm. Within normal limits Stress EKG:No changes of ischemia. The patient had no chest pain or discomfort, and there were no arrhythmias seen. Reason for termination: Protocol. Conclusions: Normal EKG and hemodynamic response to IV Lexiscan. Nuclear data: At rest the patient was given 14.29 millicuries of technetium 99m sestamibi injected intravenously. As per protocol rest non gated SPECT images were obtained. Subsequently the patient was given intravenous Lexiscan at a dose of 0.4 mg in 5 mL intravenously, followed by flush with normal saline. Subsequently the stress dose of 41.4 millicuries of technetium 99m sestamibi was injected intravenously. As per protocol stress gated images were obtained. Nuclear interpretation: Review of images showed that there was bowel contamination artifact of the inferior wall. In spite of this all segments of the myocardium had normal perfusion at rest, and normal perfusion post stress with IV Lexiscan. All segments of the myocardium had normal motion, contraction, and thickening by gated study. Computer read T. I D. ratio was abnormal at 1.35. This is not result of reliable. Visually the 3 times daily ratio is not in the abnormal range. Computer read rest, and stress left ventricular ejection fraction were 55 %, and 53 %, respectively. Visually both the stress and rest ejection fractions were normal, and greater than 55%. Conclusion: 1. There is no scintigraphic evidence of Lexiscan induced myocardial ischemia. 2. There is no scintigraphic evidence of myocardial infarction/scar. Recommendations: Aggressive risk factor modification, and treating the underlying co- morbidities. MTDD
--- NOTE | 2018-08-03 14:55 | PDOC DISCHARGE SUMMARY ---
General - Admit/Disc Date/PCP Admission Date/Primary Care Provider: 07/31/18 20:49 Discharge Date: 08/03/18 - Discharge Diagnosis (1) Chest pain Is this a current diagnosis for this admission?: Yes (2) Alcohol dependence Is this a current diagnosis for this admission?: Yes (3) Anxiety Is this a current diagnosis for this admission?: Yes (4) Obstructive sleep apnea Is this a current diagnosis for this admission?: Yes (5) Transaminitis Is this a current diagnosis for this admission?: Yes (6) Hyperlipidemia Is this a current diagnosis for this admission?: Yes (7) Hypertension Is this a current diagnosis for this admission?: Yes - Additional Information Discharge Diet: As Tolerated Discharge Activity: Activity As Tolerated Prescriptions: Amlodipine Besylate [Norvasc 5 mg Tablet] 10 mg PO DAILY 30 Days #30 tablet Buspirone HCl [Buspar 10 mg Tablet] 10 mg PO Q12 30 Days #60 tablet Carvedilol [Coreg 12.5 mg Tablet] 25 mg PO Q12 30 Days #60 tablet Venlafaxine HCl ER [Effexor Xr 37.5 mg Cap.sr] 37.5 mg PO Q12 30 Days #60 cap.sr.24h Home Medications: Hydrochlorothiazide [Hydrodiuril 25 mg Tablet] 25 mg PO DAILY 07/17/18 Amlodipine Besylate [Norvasc 5 mg Tablet] 10 mg PO DAILY 30 Days #30 tablet Buspirone HCl [Buspar 10 mg Tablet] 10 mg PO Q12 30 Days #60 tablet 08/03/18 Carvedilol [Coreg 12.5 mg Tablet] 25 mg PO Q12 30 Days #60 tablet 08/03/18 Venlafaxine HCl ER [Effexor Xr 37.5 mg Cap.sr] 37.5 mg PO Q12 30 Days #60 cap.sr.24h 08/03/18 History of Present Illness Patient complains of: Chest pain History of Present Illness: ANAY ELLSWORTH is a 48 year old male with history of anxiety with panic attacks and hypertension who was sent to to ED complaining of chest pain. Chest pain started at 3 PM while sitting, pressure-like, up to 8/10, nonradiating , associated with diaphoresis, shortness of breath, shaking. He was discharged from our facility on 07/17/2018. He states that stress test was attempted on his last admission but but was canceled due to elevated blood pressure caused by his anxiety. He was supposed to make an appointment with Dr. Rodrigues , unfortunately could not do it due to lack of health insurance. On this admission EKG and troponins have been negative was found to have elevated blood pressure. Has history of EtOH abuse and last drink was 2 days ago.. Hospital Course Hospital Course: (1) Chest pain Resolved. Atypical chest pain by history unlikely cardiac however HEART Score 4 to his risk factors. EKG and troponin has been negative. Status post Lexiscan Cardiolite stress test. Continue aspirin, statin, beta blockers. (2) Alcohol dependence No signs of withdrawal. Advised on cutting down EtOH abuse. Was monitored for withdrawal.. (3) Anxiety Improved. Start on BuSpar and Effexor as per psych recommendation. Outpatient psychiatry follow-up (4) Obstructive sleep apnea Nocturnal CPAP. Outpatient follow-up for nocturnal polysomnography. (5) Transaminitis Likely due to alcoholic hepatitis or underlying fatty liver disease due to alcohol dependence. Ultrasound from 08/01/2018 shows fatty liver, mild hepatomegaly. No ascites. Pending hepatitis panel. Patient was asked to follow-up on the results of hepatitis panel. (6) Hyperlipidemia ASCVD score of 9.1%. Started on high intensity statins. Advised on lifestyle and diet modification. (7) Hypertension Better controlled. Continue hydrochlorothiazide, amlodipine, carvedilol. Adjust medications as needed. Outpatient PCP follow-up. Physical Exam Vital Signs: Temp Pulse Resp BP Pulse Ox 98.1 F 76 16 156/100 H 100 08/03/18 08:00 08/03/18 08:00 08/03/18 08:00 08/03/18 11:42 08/03/18 08:00 Intake & Output 08/02/18 08/03/18 08/04/18 06:59 06:59 06:59 Intake Total 1405 1360 Balance 1405 1360 Weight 99.6 kg 99.6 kg General appearance: PRESENT: no acute distress, well-developed, well-nourished Head exam: PRESENT: atraumatic, normocephalic Eye exam: PRESENT: conjunctiva pink, EOMI, PERRLA. ABSENT: scleral icterus Ear exam: PRESENT: normal external ear exam Mouth exam: PRESENT: moist, tongue midline Neck exam: ABSENT: carotid bruit, JVD, lymphadenopathy, thyromegaly Respiratory exam: PRESENT: clear to auscultation mony. ABSENT: rales, rhonchi, wheezes Cardiovascular exam: PRESENT: RRR. ABSENT: diastolic murmur, rubs, systolic murmur Pulses: PRESENT: normal dorsalis pedis pul Vascular exam: PRESENT: normal capillary refill GI/Abdominal exam: PRESENT: normal bowel sounds, soft. ABSENT: distended, guarding, mass, organolmegaly, rebound, tenderness Rectal exam: PRESENT: deferred Extremities exam: PRESENT: full ROM. ABSENT: calf tenderness, clubbing, pedal edema Neurological exam: PRESENT: alert, awake, oriented to person, oriented to place , oriented to time, oriented to situation, CN II-XII grossly intact. ABSENT: motor sensory deficit Psychiatric exam: PRESENT: appropriate affect, normal mood. ABSENT: homicidal ideation, suicidal ideation Skin exam: PRESENT: dry, intact, warm. ABSENT: cyanosis, rash Results Laboratory Results: 08/02/18 05:01 08/02/18 06:56 07/31/18 07/31/18 08/01/18 22:03 22:03 04:45 CK-MB (CK-2) 2.12 1.26 Troponin I < 0.012 08/01/18 08/02/18 08/02/18 11:13 05:01 06:56 CK-MB (CK-2) 1.07 Troponin I Cancelled < 0.012 Impressions: Chest X-Ray 07/31/18 18:01 IMPRESSION: NO ACUTE RADIOGRAPHIC FINDING IN THE CHEST. Abdomen Ultrasound 08/01/18 00:00 IMPRESSION: Fatty liver. Mild hepatomegaly. No ascites. Qualifiers - * PATIENT BEING DISCHARGED WITH ANY OF THE FOLLOWING DIAGNOSIS: No
[2018-08-03] MEDS ORDERED: POTASSIUM CHLORIDE 20 MEQ/15 ML UDCUP PO ONE (16:00)
[2018-08-03 16:31] VITALS: BP 126/90
[2018-08-04] MEDS ORDERED: AMLODIPINE BESYLATE 5 MG TABLET PO SCH (13:00)
== END 2018-08-03 19:05 | disposition home or self-care (01) ==
LOC: ER 17:17 → EH 20:49 → 4N 21:48
PROVIDERS: ADMIT Internal Medicine; ATTEND Internal Medicine
DX: R07.89 Other chest pain (principal); F10.239 Alcohol dependence with withdrawal, unspecified; F41.0 Panic disorder [episodic paroxysmal anxiety]; G47.33 Obstructive sleep apnea (adult) (pediatric); R74.0 Nonspecific elevation of levels of transaminase and lactic acid dehydrogenase [LDH]; E78.5 Hyperlipidemia, unspecified; I10 Essential (primary) hypertension; K76.0 Fatty (change of) liver, not elsewhere classified; R16.0 Hepatomegaly, not elsewhere classified; F17.290 Nicotine dependence, other tobacco product, uncomplicated; E87.6 Hypokalemia; F32.9 Major depressive disorder, single episode, unspecified; I45.81 Long QT syndrome; Z79.899 Other long term (current) drug therapy; Z59.8 Other problems related to housing and economic circumstances; Z73.3 Stress, not elsewhere classified; Z59.1 Inadequate housing; Z23 Encounter for immunization
CPT/HCPCS: 93005 ×3; 99285; 96361; 96374; 96375; 36415 ×3; 82553 ×2; 80307; 82550; 82977; 85025 ×2; 80053 ×2; 84484 ×2; 80061; 83880; 93017; 71045; 76705; 78452; 90686; 93010 ×3; G0008; A9500; J2785; J3490 ×4; J0360; J2765; J1650; J2060 ×3; S0164 ×2; J7030; Q9969; 90471

== ENCOUNTER 2019-12-25 06:54 | Observation (INO) | payer SELFPAY ==
[2019-12-25] MEDS ORDERED: LORAZEPAM INJ 2 MG/1 ML VIAL IV ONE ×2 (07:33→09:00)
[2019-12-25] MEDS ORDERED: METOPROLOL TARTRATE PF/INJ 5 MG/5 ML SDV IV ONE (07:34)
[2019-12-25] MEDS ORDERED: ASPIRIN 325 MG TABLET PO ONE (07:35)
--- NOTE | 2019-12-25 08:30 | RADIOLOGY REPORT (SQ) ---
EXAM DESCRIPTION: CHEST SINGLE VIEW COMPLETED DATE/TIME: 12/25/2019 7:51 am REASON FOR STUDY: Chest pain COMPARISON: 07/16/2018 EXAM PARAMETERS: NUMBER OF VIEWS: One view. TECHNIQUE: Single frontal radiographic view of the chest acquired. RADIATION DOSE: NA LIMITATIONS: None. FINDINGS: LUNGS AND PLEURA: No opacities, masses or pneumothorax. No pleural effusion. MEDIASTINUM AND HILAR STRUCTURES: No masses. Contour normal. HEART AND VASCULAR STRUCTURES: Heart normal in size. Normal vasculature. BONES: No acute findings. HARDWARE: None in the chest. OTHER: No other significant finding. IMPRESSION: NO ACUTE RADIOGRAPHIC FINDING IN THE CHEST. TECHNICAL DOCUMENTATION: JOB ID: [id number] [employer]- All Rights Reserved Reading location - IP/workstation name: [email or web address]
--- NOTE | 2019-12-25 09:54 | ER Document Report ---
ED General - General Chief Complaint: Chest Pain Stated Complaint: CHEST PAIN Time Seen by Provider: 12/25/19 07:27 Primary Care Provider: SAM BYNUM PA-C [Primary Care Provider] - Follow up as needed TRAVEL OUTSIDE OF THE [place] IN LAST 30 DAYS: No - HPI Notes: Chief complaint: Anxiety and chest pain 49-year-old male with history of PTSD, panic attacks and alcohol abuse has been taking metoprolol and Klonopin. Ran out of both medications within the last week. His primary provider apparently refused to refill the Klonopin because it was "too early". Patient admits that he has been increasing his dose above the prescribed 1 mg 3 times daily. Awakened this morning sweaty and tachycardic and said he felt some dull pressure in the center of his chest. Patient was pr eviously admitted under similar circumstances in July of 2018 and at that time had a negative cardiac work-up including a Lexiscan. Patient is a smoker. History of hypertension. Family history of CAD. Denies use cocaine. Denies thromboembolic disease. Denies diabetes mellitus. Denies hyperlipidemia. HEART Score: HISTORY 1 ECG 0 AGE 1 RISK FACTORS 0=0, 1-2=1, 2 TROPONIN 0 TOTAL: 4 If HEART score is = 3 AND both tronponin measurments are normal, the 30 day risk of a major adverse cardiac event (all-cause mortality, myocardia infarction or need for coronary revscularization) is < 1% (Sensitivity 100%, NPV 100%). - Related Data Allergies/Adverse Reactions: YVONNE Inhibitors Allergy (Verified 07/16/18 17:53) Penicillins Allergy (Verified 07/16/18 17:53) Home Medications: Clonipine. GAbapentine. celexa. HCTZ. Atenolol Past Medical History - General Information source: Patient - Social History Smoking Status: Current Every Day Smoker Frequency of alcohol use: None Drug Abuse: None Family History: CAD Patient has suicidal ideation: No Patient has homicidal ideation: No - Past Medical History Cardiac Medical History: Reports: Hx Hypertension Pulmonary Medical History: Reports: Hx Sleep Apnea - Cannot tolerate CPAP Renal/ Medical History: Denies: Hx Peritoneal Dialysis Psychiatric Medical History: Reports: Hx Depression - anxiety Past Surgical History: Reports: Hx Abdominal Surgery, Hx Tonsillectomy Review of Systems - Review of Systems Notes: Constitutional: Negative for fever. HENT: Negative for sore throat. Eyes: Negative for visual changes. Cardiovascular: As per HPI. Respiratory: Negative for shortness of breath. Gastrointestinal: Negative for abdominal pain, vomiting or diarrhea. Genitourinary: Negative for dysuria. Musculoskeletal: Negative for back pain. Skin: Negative for rash. Neurological: Negative for headaches, weakness or numbness. 10 point ROS negative except as marked above and in HPI. Physical Exam - Vital signs Vitals: Temp Pulse Resp BP Pulse Ox 97.4 F 74 22 H 169/104 H 100 12/25/19 07:09 12/25/19 07:09 12/25/19 07:09 12/25/19 07:09 12/25/19 07:09 - Notes Notes: GENERAL: Very anxious male approximately stated age. SKIN: Flushed and diaphoretic. Good turgor no rashes. HEAD: Normocephalic atraumatic. EYES: PERRLA. EOMI. Conjunctivae and sclerae clear. EARS: CANALS AND TMS CLEAR. NOSE: CLEAR. MOUTH: Moist mucosa. Good dentition. No stridor or edema. No drooling. NECK: Supple. No masses or thyromegaly. No adenopathy. Carotids 2+ without bruits. No JVD. BACK: Symmetrical without tenderness. CHEST: Respirations unlabored. Breath sounds clear and symmetrical. HEART: Tachycardic. Regular rhythm. No murmur gallop or rub. ABDOMEN: Soft nontender without masses, organomegaly or rebound. Bowel sounds normally active. No bruits. GENITALIA: Deferred. EXTREMITIES: No edema. No calf tenderness. Cap refill less than 1.5 seconds. Dorsalis pedis and posterior tibial pulses 3+ and symmetrical. NEUROLOGICAL: Generalized tremor. GCS 15. Alert and oriented x3. Normal gait. Fluent speech. Cranial nerves II through XII intact. Sensorimotor and cerebellar normal. Normal tone. PSYCHIATRIC: Extremely anxious. Course - Vital Signs Vital signs: Temp Pulse Resp BP Pulse Ox 97.4 F 74 20 150/97 H 96 12/25/19 07:09 12/25/19 07:09 12/25/19 13:31 12/25/19 13:31 12/25/19 13:31 - Laboratory Result Diagrams: 12/25/19 07:15 03/11/20 07:15 Laboratory results interpreted by me: 12/25/19 12/25/19 07:15 07:15 RBC 6.10 H Hgb 19.5 H Hct 57.5 H RDW 14.2 H [place] % (Auto) 14.4 H Potassium 3.3 L Chloride 95 L Anion Gap 20 H BUN 5 L Glucose 118 H AST 134 H ALT 145 H Alkaline Phosphatase 157 H Discharge - Discharge Clinical Impression: Hypokalemia Chest pain Qualifiers: Chest pain type: unspecified Qualified Code(s): R07.9 - Chest pain, unspecified Hypertension Qualifiers: Hypertension type: essential hypertension Qualified Code(s): I10 - Essential (primary) hypertension Benzodiazepine withdrawal Qualifiers: Complication of substance-induced condition: with unspecified complication Qualified Code(s): F13.239 - Sedative, hypnotic or anxiolytic dependence with withdrawal, unspecified Condition: Stable Disposition: ADMITTED INPATIENT Admitting Provider: Nura (Hospitalist) Unit Admitted: Telemetry Referrals: SAM BYNUM PA-C [Primary Care Provider] - Follow up as needed
[2019-12-25 12:06] LABS: ABSOLUTE BASOPHILS # (AUTO) 0.1 10^3/uL (0.0-0.2); ABSOLUTE LYMPHOCYTES (AUTO) 1.5 10^3/uL (0.5-4.7); ABSOLUTE MONOCYTES (AUTO) 0.8 10^3/uL (0.1-1.4); ABSOLUTE NEUT (AUTO) 3.3 10^3/uL (1.7-8.2); BASOPHILS % (AUTO) 1.3 % (0-2); EOSINOPHILS % (AUTO) 0.3 % (0-6); HEMOGLOBIN 19.5 g/dL (13.5-17.0); LYMPHOCYTES % (AUTO) 26.9 % (13-45); MEAN CORPUSCULAR HEMOGLOBIN 31.9 pg (27.0-33.4); MEAN CORPUSCULAR HGB CONC 33.8 g/dL (32.0-36.0); MEAN CORPUSCULAR VOLUME 94 fl (80-97); MONOCYTES % (AUTO) 14.4 % (3-13); PLATELET COUNT 229 10^3/uL (150-450); RED CELL DISTRIBUTION WIDTH 14.2 % (11.5-14.0); SEGMENTED NEUTROPHILS % (AUTO) 57.1 % (42-78); TOTAL CELLS COUNTED % (AUTO) 100 %; WHITE BLOOD COUNT 5.7 10^3/uL (4.0-10.5)
[2019-12-25 12:08] LABS: HEMATOCRIT 57.5 % (37.9-51.0)
[2019-12-25 12:17] LABS: ALBUMIN 4.4 g/dL (3.5-5.0); ALCOHOL 81 mg/dL (NONE DETECTED); ALKALINE PHOSPHATASE 157 U/L (38-126); ASPARTATE AMINO TRANSFERASE 134 U/L (17-59); BILIRUBIN,DIRECT 0.4 mg/dL (0.0-0.4); BLOOD UREA NITROGEN 5 mg/dL (7-20); CALCIUM 9.3 mg/dL (8.4-10.2); CARBON DIOXIDE 24 mmol/L (22-30); CHLORIDE 95 mmol/L (98-107); GLUCOSE 118 mg/dL (75-110); POTASSIUM 3.3 mmol/L (3.6-5.0); TOTAL PROTEIN 7.9 g/dL (6.3-8.2)
[2019-12-25 13:26] LABS: URINE AMPHETAMINES SCREEN NEGATIVE; URINE BARBITURATES SCREEN NEGATIVE; URINE BENZODIAZEPINES SCREEN NEGATIVE; URINE COCAINE SCREEN NEGATIVE; URINE METHADONE SCREEN NEGATIVE; URINE PHENCYCLIDINE SCREEN NEGATIVE
[2019-12-25 13:27] LABS: URINE MARIJUANA (THC) SCREEN UNCONFIRMED POSITIVE
[2019-12-25 13:30] LABS: ANION GAP 20 (5-19)
[2019-12-25] MEDS ORDERED: TEMAZEPAM 7.5 MG CAPSULE PO PRN (14:46)
[2019-12-25] MEDS ORDERED: ONDANSETRON HCL INJ/PF 4 MG/2 ML SDV IV PRN (14:46)
[2019-12-25] MEDS ORDERED: ACETAMINOPHEN 325 MG TABLET PO PRN (14:46)
--- NOTE | 2019-12-25 15:10 | PDOC H&P ---
History of Present Illness Admission Date/PCP: 12/25/19 14:23 SAM BYNUM PA-C Patient complains of: Chest pain/anxiety History of Present Illness: ANAY ELLSWORTH is a 49 year old male with a history of PTSD, anxiety, NADEGE not on CPAP, hypertension, who presents to the hospital after experiencing an episode accompanied by anxiety, mid chest pain or shortness of breath as well as tremulous. The episode started last night and this morning as well. During the episode he also experienced diaphoresis. The chest pain was overwhelming at the time but is currently about a 2/10. Chest pain was nonradiating and had no exacerbating or alleviating factors. States that the episodes felt very similar to his prior anxiety attacks which he often experiences. Patient states that he had run out of his Klonopin which he was taking 1 mg 3 times a day. 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 Still has been taking Celexa. Hospitalist service requested for admission for evaluation of chest pain. Past Medical History Cardiac Medical History: Reports: Hypertension Pulmonary Medical History: Reports: Sleep Apnea - Cannot tolerate CPAP Psychiatric Medical History: Reports: General Anxiety Disorder, Post Traumatic Stress Disorder Past Surgical History Past Surgical History: Reports: Tonsillectomy Social History Smoking Status: Current Every Day Smoker Electronic Cigarette use?: Yes Frequency of Alcohol Use: Social - Patient admits to a prior history history of excessive drinking but for the past few years only drinks about a few times during the weekends only. Last drink was last night. Hx Recreational Drug Use: No - besides marijuana Drugs: Marijuana Hx Prescription Drug Abuse: No - Advance Directive Resuscitation Status: Full Code Family History Family History: CAD, DM Parental Family History Reviewed: Yes Children Family History Reviewed: NA Sibling(s) Family History Reviewed.: NA Medication/Allergy Home Medications: Hydrochlorothiazide [Hydrodiuril 25 mg Tablet] 25 mg PO DAILY 07/17/18 Amlodipine Besylate [Norvasc 5 mg Tablet] 10 mg PO DAILY 30 Days #30 tablet 08/03/18 Buspirone HCl [Buspar 10 mg Tablet] 10 mg PO Q12 30 Days #60 tablet 08/03/18 Carvedilol [Coreg 12.5 mg Tablet] 25 mg PO Q12 30 Days #60 tablet 08/03/18 Venlafaxine HCl ER [Effexor Xr 37.5 mg Cap.sr] 37.5 mg PO Q12 30 Days #60 cap.sr.24h 08/03/18 Allergies/Adverse Reactions: YVONNE Inhibitors Allergy (Verified 07/16/18 17:53) Penicillins Allergy (Verified 07/16/18 17:53) Review of Systems Constitutional: PRESENT: chills. ABSENT: fever(s) Eyes: ABSENT: visual disturbances Nose, Mouth, and Throat: ABSENT: headache(s) Cardiovascular: PRESENT: chest pain Respiratory: PRESENT: dyspnea Gastrointestinal: ABSENT: abdominal pain Genitourinary: ABSENT: dysuria Musculoskeletal: ABSENT: back pain Integumentary: PRESENT: diaphoresis Neurological: ABSENT: confusion, convulsions Psychiatric: PRESENT: anxiety Endocrine: ABSENT: polyuria Hematologic/Lymphatic: ABSENT: easy bleeding Physical Exam Vital Signs: Temp Pulse Resp BP Pulse Ox 97.4 F 74 15 145/111 H 94 12/25/19 07:09 12/25/19 07:09 12/25/19 14:16 12/25/19 14:16 12/25/19 14:16 Intake & Output 12/24/19 12/25/19 12/26/19 06:59 06:59 06:59 Weight 100.244 kg General appearance: PRESENT: no acute distress, cooperative Eye exam: PRESENT: EOMI Mouth exam: PRESENT: neck supple Neck exam: ABSENT: JVD Respiratory exam: PRESENT: clear to auscultation mony, unlabored. ABSENT: tachypnea, wheezes Cardiovascular exam: PRESENT: +S1, +S2. ABSENT: tachycardia GI/Abdominal exam: PRESENT: soft. ABSENT: rebound, rigid, tenderness Extremities exam: ABSENT: calf tenderness, pedal edema Neurological exam: PRESENT: alert, awake, oriented to person, oriented to place, oriented to time, oriented to situation, other - Fully conversational and appropriate Psychiatric exam: PRESENT: anxious. ABSENT: agitated Focused psych exam: ABSENT: pressured speech Skin exam: PRESENT: other - Flushed skin Results Laboratory Results: 12/25/19 07:15 12/25/19 07:15 12/25/19 12/25/19 12/25/19 07:15 07:15 07:15 WBC 5.7 RBC 6.10 H Hgb 19.5 H Hct 57.5 H MCV 94 MCH 31.9 MCHC 33.8 RDW 14.2 H Plt Count 229 Seg Neutrophils % 57.1 Sodium 138.6 Potassium 3.3 L Chloride 95 L Carbon Dioxide 24 Anion Gap 20 H BUN 5 L Creatinine 0.83 Est GFR ( Amer) > 60 Glucose 118 H Calcium 9.3 Magnesium 1.9 Total Bilirubin 1.0 AST 134 H Alkaline Phosphatase 157 H Total Protein 7.9 Albumin 4.4 12/25/19 07:15 Troponin I < 0.012 Impressions: Chest X-Ray 12/25/19 07:35 IMPRESSION: NO ACUTE RADIOGRAPHIC FINDING IN THE CHEST. Assessment and Plan - Diagnosis (1) Chest pain Qualifiers: Chest pain type: unspecified Qualified Code(s): R07.9 - Chest pain, unspecified Is this a current diagnosis for this admission?: Yes Plan: Patient's chest pain was clearly secondary to an anxiety attack EKG shows no ischemic changes Troponin is negative No need to trend troponin any further. Chest pain is minimal at this point 11/25 after receiving Ativan. (2) Anxiety attack Is this a current diagnosis for this admission?: Yes Plan: Has history of PTSD and anxiety disorder. His anxiety attack may be propagated from the fact that he has been off his Klonopin for the past week. He is scheduled to get a refill from his PCP tomorrow. Check TSH Will place patient back on Klonopin, continue Celexa, Ativan as needed. Psychiatric consulted. (3) History of alcohol abuse Is this a current diagnosis for this admission?: Yes Plan: States that he only drinks during the weekends at this point but had every drinking in the past. Last drink yesterday night. Will place on CIWA protocol while in in the hospital. (4) Benzodiazepine withdrawal Qualifiers: Complication of substance-induced condition: with unspecified complication Qualified Code(s): F13.239 - Sedative, hypnotic or anxiolytic dependence with withdrawal, unspecified Is this a current diagnosis for this admission?: Yes Plan: May be having mild withdrawal from his Klonopin which I restarted at this time with PRN Ativan. (5) Hypertension Qualifiers: Hypertension type: essential hypertension Qualified Code(s): I10 - Esse ntial (primary) hypertension Is this a current diagnosis for this admission?: Yes Plan: Hydrochlorothiazide and atenolol (6) Obstructive sleep apnea Is this a current diagnosis for this admission?: Yes Plan: Noncompliant with CPAP. (7) Transaminitis Is this a current diagnosis for this admission?: Yes Plan: Likely secondary to binging on alcohol. At this point will just trend liver transaminases. - Time Time Spent with patient: 35 or more minutes
[2019-12-25] MEDS ORDERED: POTASSIUM CHLORIDE 10 MEQ TABLET.ER PO ONE (15:30)
[2019-12-25] MEDS: CITALOPRAM HYDROBROMIDE 20 MG TABLET PO SCH (17:06)
[2019-12-25] MEDS: HYDROCHLOROTHIAZIDE 25 MG TABLET PO SCH (17:06)
[2019-12-25] MEDS: CLONAZEPAM 1 MG TABLET PO SCH (17:07)
--- NOTE | 2019-12-25 17:22 | EKG REPORT ---
SEVERITY:- ABNORMAL ECG - SINUS RHYTHM PROBABLE LEFT ATRIAL ABNORMALITY NONSPECIFIC T ABNORMALITIES, INFERIOR LEADS PROLONGED QT INTERVAL : Confirmed by: Perfecto Kitchen 25-Dec-2019 17:22:00
[2019-12-25] MEDS: LORAZEPAM INJ 2 MG/1 ML VIAL IV PRN (23:35)
[2019-12-26 06:58] LABS: ALBUMIN 4.1 g/dL (3.5-5.0); ALKALINE PHOSPHATASE 132 U/L (38-126); ANION GAP 13 (5-19); ASPARTATE AMINO TRANSFERASE 55 U/L (17-59); BILIRUBIN,DIRECT 0.3 mg/dL (0.0-0.4); BILIRUBIN,TOTAL 1.1 mg/dL (0.2-1.3); BLOOD UREA NITROGEN 12 mg/dL (7-20); CALCIUM 9.5 mg/dL (8.4-10.2); CARBON DIOXIDE 27 mmol/L (22-30); CHLORIDE 97 mmol/L (98-107); GLUCOSE 90 mg/dL (75-110); POTASSIUM 3.8 mmol/L (3.6-5.0); TOTAL PROTEIN 7.5 g/dL (6.3-8.2)
[2019-12-26] MEDS: LORAZEPAM INJ 2 MG/1 ML VIAL IV PRN (08:24)
[2019-12-26] MEDS ORDERED: ENOXAPARIN SODIUM INJ 40 MG/0.4 ML DISP.SYRIN SUBCUT SCH (10:00)
[2019-12-26] MEDS ORDERED: ATENOLOL 50 MG TABLET PO SCH (10:00)
[2019-12-26] MEDS: CLONAZEPAM 1 MG TABLET PO SCH (10:34)
[2019-12-26] MEDS: HYDROCHLOROTHIAZIDE 25 MG TABLET PO SCH (10:35)
[2019-12-26] MEDS: CITALOPRAM HYDROBROMIDE 20 MG TABLET PO SCH (10:36)
[2019-12-26 11:05] VITALS: BP 160/105
--- NOTE | 2019-12-26 11:46 | PDOC DISCHARGE SUMMARY ---
Impression - Admit/DC Date/PCP Admission Date/Primary Care Provider: 12/25/19 14:23 SAM BYNUM PA-C Discharge Date: 12/26/19 - Discharge Diagnosis (1) Chest pain Is this a current diagnosis for this admission?: Yes (2) Anxiety attack Is this a current diagnosis for this admission?: Yes (3) History of alcohol abuse Is this a current diagnosis for this admission?: Yes (4) Benzodiazepine withdrawal Is this a current diagnosis for this admission?: Yes (5) Hypertension Is this a current diagnosis for this admission?: Yes (6) Obstructive sleep apnea Is this a current diagnosis for this admission?: Yes (7) Alcoholic hepatitis Is this a current diagnosis for this admission?: Yes - Additional Information Resuscitation Status: Full Code Discharge Diet: As Tolerated Discharge Activity: Activity As Tolerated Referrals: SAM BYNUM PA-C [Primary Care Provider] - Follow up as needed Prescriptions: Atenolol 100 mg PO DAILY #30 Buspirone HCl [Buspar 10 mg Tablet] 10 mg PO Q12 60 Days tablet Hydrochlorothiazide 25 mg PO DAILY 30 Days Home Medications: Citalopram Hydrobromide [Celexa] 40 mg PO DAILY 12/25/19 Clonazepam [Klonopin 1 mg Tablet] 1 mg PO TID 12/25/19 Gabapentin [Neurontin 300 mg Capsule] 300 mg PO Q12HP PRN 12/25/19 Testosterone Enanthate [Xyosted] 300 mg IM [id number] 12/25/19 Atenolol 100 mg PO DAILY #30 12/26/19 Buspirone HCl [Buspar 10 mg Tablet] 10 mg PO Q12 60 Days tablet 12/26/19 Hydrochlorothiazide 25 mg PO DAILY 30 Days 12/26/19 History of Present Illiness History of Present Illness: ANAY ELLSWORTH is a 49 year old male with a history of PTSD, anxiety, NADEGE not on CPAP, hypertension, who presents to the hospital after experiencing an episode accompanied by anxiety, mid chest pain or shortness of breath as well as tremulous. The episode started last night and this morning as well. During the episode he also experienced diaphoresis. The chest pain was overwhelming at the time but is currently about a 2/10. Chest pain was nonradiating and had no exacerbating or alleviating factors. States that the episodes felt very similar to his prior anxiety attacks which he often experiences. Patient states that he had run out of his Klonopin which he was taking 1 mg 3 times a day. 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 Still has been taking Celexa. Hospitalist service requested for admission for evaluation of chest pain. Hospital Course Hospital Course: Patient was admitted for evaluation of chest pain. His chest pain was felt to be strictly secondary to anxiety attack. He was given lorazepam with brisk resolution of his chest pain. Patient has a history of anxiety and PTSD. Patient was also thought to be having mild benzodiazepine withdrawal due to being off his Klonopin for over 1 week. I have restarted patient's Klonopin. Patient has called his pharmacy to confirm that his prescription which was issued by his primary care provider for Klonopin has been refilled and is ready for pickup and this has been confirmed. Started patient on buspirone in addition to his Celexa to also help with his anxiety so that he can hopefully gradually wean off klonipin in the future. I have recommended that he follow-up with a psychiatrist in the outpatient setting and he should go to his primary care provider for further care. I have increased patient's hydrochlorothiazide from 12.5 mg daily to 25 mg daily. Patient's liver enzymes were also elevated likely due to alcohol binging causing mild alcohol hepatitis but his transaminases are downtrending today. Patient's anxiety is much improved today and is stable for discharge. Physical Exam Vital Signs: Temp Pulse Resp BP Pulse Ox 98.4 F 86 18 160/105 H 98 12/25/19 23:29 12/25/19 23:29 12/25/19 23:29 12/26/19 11:05 12/25/19 23:29 Intake & Output 12/25/19 12/26/19 12/27/19 06:59 06:59 06:59 Intake Total 300 Balance 300 Weight 91.6 kg General appearance: PRESENT: no acute distress, cooperative Neck exam: ABSENT: JVD Respiratory exam: PRESENT: clear to auscultation mony, unlabored. ABSENT: tachypnea, wheezes Cardiovascular exam: PRESENT: +S1, +S2. ABSENT: tachycardia Neurological exam: PRESENT: alert, awake, oriented to person, oriented to place, oriented to time, oriented to situation Psychiatric exam: PRESENT: anxious - Mild at this point. ABSENT: agitated Results Laboratory Results: WBC 5.7 10^3/uL (4.0-10.5) 12/25/19 07:15 RBC 6.10 10^6/uL (4.35-5.55) H 12/25/19 07:15 Hgb 19.5 g/dL (13.5-17.0) H 12/25/19 07:15 Hct 57.5 % (37.9-51.0) H 12/25/19 07:15 MCV 94 fl (80-97) 12/25/19 07:15 MCH 31.9 pg (27.0-33.4) 12/25/19 07:15 MCHC 33.8 g/dL (32.0-36.0) 12/25/19 07:15 RDW 14.2 % (11.5-14.0) H 12/25/19 07:15 Plt Count 229 10^3/uL (150-450) 12/25/19 07:15 Lymph % (Auto) 26.9 % (13-45) 12/25/19 07:15 [place] % (Auto) 14.4 % (3-13) H 12/25/19 07:15 Eos % (Auto) 0.3 % (0-6) 12/25/19 07:15 Baso % (Auto) 1.3 % (0-2) 12/25/19 07:15 Absolute Neuts (auto) 3.3 10^3/uL (1.7-8.2) 12/25/19 07:15 Absolute Lymphs (auto) 1.5 10^3/uL (0.5-4.7) 12/25/19 07:15 Absolute Monos (auto) 0.8 10^3/uL (0.1-1.4) 12/25/19 07:15 Absolute Eos (auto) 0.0 10^3/uL (0.0-0.6) 12/25/19 07:15 Absolute Basos (auto) 0.1 10^3/uL (0.0-0.2) 12/25/19 07:15 Seg Neutrophils % 57.1 % (42-78) 12/25/19 07:15 Sodium 136.9 mmol/L (137-145) L 12/26/19 06:30 Potassium 3.8 mmol/L (3.6-5.0) 12/26/19 06:30 Chloride 97 mmol/L (98-107) L 12/26/19 06:30 Carbon Dioxide 27 mmol/L (22-30) 12/26/19 06:30 Anion Gap 13 (5-19) 12/26/19 06:30 BUN 12 mg/dL (7-20) 12/26/19 06:30 Creatinine 0.69 mg/dL (0.52-1.25) 12/26/19 06:30 Est GFR ( Amer) > 60 (>60) 12/26/19 06:30 Est GFR (MDRD) Non-Af > 60 (>60) 12/26/19 06:30 Glucose 90 mg/dL (75-110) 12/26/19 06:30 Calcium 9.5 mg/dL (8.4-10.2) 12/26/19 06:30 Magnesium 1.9 mg/dL (1.6-2.3) 12/25/19 07:15 Total Bilirubin 1.1 mg/dL (0.2-1.3) 12/26/19 06:30 Direct Bilirubin 0.3 mg/dL (0.0-0.4) 12/26/19 06:30 Neonat Total Bilirubin Not Reportable 12/26/19 06:30 Neonat Direct Bilirubin Not Reportable 12/26/19 06:30 Neonat Indirect Bili Not Reportable 12/26/19 06:30 AST 55 U/L (17-59) 12/26/19 06:30 ALT 101 U/L (<50) H 12/26/19 06:30 Alkaline Phosphatase 132 U/L (38-126) H 12/26/19 06:30 Troponin I < 0.012 ng/mL 12/25/19 07:15 Total Protein 7.5 g/dL (6.3-8.2) 12/26/19 06:30 Albumin 4.1 g/dL (3.5-5.0) 12/26/19 06:30 TSH 2.31 uIU/mL (0.47-4.68) 12/25/19 07:15 Urine Opiates Screen NEGATIVE 12/25/19 12:45 Urine Methadone Screen NEGATIVE 12/25/19 12:45 Ur Barbiturates Screen NEGATIVE 12/25/19 12:45 Ur Phencyclidine Scrn NEGATIVE 12/25/19 12:45 Ur Amphetamines Screen NEGATIVE 12/25/19 12:45 U Benzodiazepines Scrn NEGATIVE 12/25/19 12:45 Urine Cocaine Screen NEGATIVE 12/25/19 12:45 U Marijuana (THC) Screen UNCONFIRMED POSITIVE 12/25/19 12:45 Serum Alcohol 81 mg/dL (NONE DETECTED) 12/25/19 07:15 12/25/19 07:15 Troponin I < 0.012 Impressions: Chest X-Ray 12/25/19 07:35 IMPRESSION: NO ACUTE RADIOGRAPHIC FINDING IN THE CHEST. Plan Time Spent: Less than 30 Minutes Stroke Is this a Stroke Patient?: No Acute Heart Failure - Is this a Heart Failure Patient?: No
== END 2019-12-26 12:41 | disposition home or self-care (01) ==
LOC: ER 06:54 → EH 14:23 → INTOOBSV 14:23 → 4S 15:39
PROVIDERS: ADMIT Internal Medicine; ATTEND Internal Medicine
DX: F41.0 Panic disorder [episodic paroxysmal anxiety] (principal); R07.9 Chest pain, unspecified; F10.11 Alcohol abuse, in remission; F13.239 Sedative, hypnotic or anxiolytic dependence with withdrawal, unspecified; I10 Essential (primary) hypertension; G47.33 Obstructive sleep apnea (adult) (pediatric); K70.10 Alcoholic hepatitis without ascites; R61 Generalized hyperhidrosis; E87.6 Hypokalemia; F17.210 Nicotine dependence, cigarettes, uncomplicated; Z91.19 Patient's noncompliance with other medical treatment and regimen; Z79.899 Other long term (current) drug therapy; Z82.49 Family history of ischemic heart disease and other diseases of the circulatory system
CPT/HCPCS: 93005; 96376; 99285; 96374; 96375; 36415 ×2; 80307 ×2; 83735; 84443; 85025; 80053 ×2; 84484; 71045; 93010; G0378 ×3; J3490 ×2; J1650; J2060 ×2